=== PATIENT | male | born 1940 | race Caucasian/White ===

== ENCOUNTER → 2016-12-31 | Outpatient (CLI) | payer MEDICARE, BC ==
--- NOTE | 2016-12-31 11:27 | KCIC ---
MRI of the lumbar spine without contrast 12/31/2016 CLINICAL HISTORY: Recent L3 compression fracture. Low back pain. TECHNIQUE: Unenhanced T1-weighted, T2-weighted and inversion recovery sagittal and T1 and T2 weighted axial images of the lumbar spine were obtained. FINDINGS: Comparison is made to a CT scan of the abdomen and pelvis performed at [facility] dated 11/24/2016. Mild S-shaped curvature of the thoracolumbar spine is seen. Very mild anterolisthesis of L4 in relation to L5 is noted. Degenerative signal changes are seen involving all of the disks of the lumbar spine. Degenerative signal changes are seen within the marrow surrounding these discs. A relatively acute compression fracture is again seen involving the L3 vertebral body. This vertebral body has lost approximately 30 percent of its normal height, centrally. No retropulsion of bone fragments into the central spinal canal is seen. No additional compression fracture of the lumbar vertebrae is seen. The conus medullaris is normal in position, morphology and signal characteristics. At the L1-2 disc space there is a mild generalized disc bulge. Degenerative changes are seen involving the facet joints bilaterally. These findings when combined do not result in significant central spinal canal or neural foraminal stenosis. At the L2-3 disc space there is a moderate generalized disc bulge. Superimposed on this disc bulge is a central/left paracentral focal disc protrusion. This measures 3 mm in AP diameter. Degenerative changes are seen involving the facet joints bilaterally. There is moderate ligamentum flavum hypertrophy bilaterally. There is prominence of the posterior epidural fat. These findings when combined result in moderate to severe left greater than right central spinal canal stenosis. Mild left greater than right neural foraminal stenosis is seen. At the L3-4 disc space there is a mild to moderate generalized disc bulge. Degenerative changes are seen involving the facet joints bilaterally. There is mild ligamentum flavum hypertrophy bilaterally. These findings when combined result in mild to moderate central spinal canal stenosis. No neural foraminal stenosis is seen. At the L4-5 disc space there is a moderate generalized disc bulge. Superimposed on this disc bulge is a focal central/left paracentral disc protrusion. This measures 3 mm in AP diameter. Degenerative changes are seen involving the facet joints bilaterally. There is moderate ligamentum flavum hypertrophy bilaterally. These findings when combine result in severe right greater than left central spinal canal stenosis. Mild right neural foraminal stenosis is seen. The left neural foramen is patent. At the L5-S1 disc space there is a mild to moderate generalized disc bulge. Degenerative changes are seen involving the facet joints bilaterally. There is mild ligamentum flavum hypertrophy bilaterally. These findings do not result in significant central spinal canal or neural foraminal stenosis. IMPRESSION: 1. Relatively acute compression fracture is seen involving the L3 vertebral body. No retropulsion of bone fragments into the central spinal canal is seen. No additional compression fracture of the lumbar vertebrae seen. 2. The changes of degenerative disc disease are seen throughout the lumbar spine. These findings result in mild to moderate central spinal canal stenosis at L3-4, moderate to severe left greater than right central spinal canal stenosis at L2-3 and severe right greater than left central spinal canal stenosis at L4-5. Mild left greater than right neural foraminal stenosis is seen at L2-3. Mild right neural foraminal stenosis is seen at L4-5. Electronically signed by: Yazan Sheikh MD (12/31/2016 11:24 AM) [id number]
== END | disposition home or self-care (01) ==
LOC: KCIC MRI 10:05
PROVIDERS: ATTEND Nurse Practitioner Family
DX: M48.56XA Collapsed vertebra, not elsewhere classified, lumbar region, initial encounter for fracture (principal); M51.36 Other intervertebral disc degeneration, lumbar region; M48.061 Spinal stenosis, lumbar region without neurogenic claudication
CPT/HCPCS: 72148

== ENCOUNTER → 2018-04-26 | Outpatient (CLI) | payer MEDICARE, BC ==
[~2018-04-26] MED LIST: CARV6.25 PO; CLOP75TA PO; LIPITOR80 MG PO; PANT20TA2 PO; TAMS0.4C2 PO; VIT1CAPS12 PO
--- NOTE | 2018-04-26 16:07 | PAIN ---
DATE OF SERVICE: 04/26/2018 INITIAL CONSULTATION FOR PAIN CLINIC CHIEF COMPLAINT: Low back pain and bilateral lower extremity pain. HISTORY OF PRESENT ILLNESS: The patient is a 77-year-old male who presents with history of pain in the low back, bilateral extremities and hips, mostly posteriorly and anteriorly in the thighs, across low back, mid back and into the upper back as well. The patient has had physical therapy. He has done Physical Medicine and Rehabilitation with only minor decrease in pain. The patient reports pain is still significant. It helped a little bit while he was doing it, but has not helped the long-term. The patient is taking hydrocodone, which does help by about 50%, but takes it about 2-3 times a day on average without side effects. The patient reports no loss of motor function, but significant pain in the low back and in the lower extremities as described, intermittent in intensity, constant, sharp, aching pain across the low back, mid back, upper back, burning and radiating with cramping pain as well as sharp and stabbing, sometimes throbbing in between the shoulder blades. The patient rates his disability from 0-10, 10 being the worst, is a 5 with family and home responsibilities, social activity and self-care, 9 with recreation and sexual behavior, 10 with occupation and 0 with life support activities. The patient did have MRI scan of the lumbar spine, which was dated 12/31/2016 showing some moderate generalized disk bulge at L2-L3 with central left paracentral focal disk protrusion, L3-L4 with moderate generalized disk bulge as well, L4-L5 with moderate generalized disk bulge with focal central left paracentral disk protrusion also. The patient reports no loss of motor function, but significant fatigability of both lower extremities where he feels weak, but is not actually fallen or loss of motor function, but does feel significantly fatigued with both lower extremities, right essentially equal to left. PAST MEDICAL HISTORY: Significant for hypertension, cigarette smoking 1 pack a day for the last ____ years, continues to smoke. PREVIOUS SURGERY: Include an inguinal hernia repair. CURRENT MEDICATIONS: Include vitamins, Protonix, tamsulosin, carvedilol, clopidogrel, and Lipitor. ALLERGIES: The patient has no known drug allergies. FAMILY HISTORY: Significant for cancer in the patient's mother. SOCIAL HISTORY: The patient does not drink alcohol, does smoke about a pack of cigarettes a day for the past ____ years; does not using illegal, illicit or recreational drugs or other substances. He has been . 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 REVIEW OF SYSTEMS: The patient's review of systems is positive for those items mentioned in history of present illness. All systems reviewed and otherwise negative. It is complete, full and well documented on the patient's chart. PHYSICAL EXAMINATION: VITAL SIGNS: The patient's blood pressure is 124/75, pulse 80, respirations 16, temperature 97.9 degrees Fahrenheit, height 5 feet 6 inches, weight is 131 pounds. GENERAL: The patient is awake, alert, oriented, appropriate, very pleasant demeanor. HEENT: Head shows normocephalic, atraumatic. Extraocular movements are intact and symmetrical. Oral cavity: Mucous membranes moist and pink. Dentition is intact. NECK: Shows anterior throat supple without palpable lymphadenopathy noted. Swallow reflex is symmetrical. CHEST: Shows normal on inspection. Breath sounds clear to auscultation bilaterally. HEART: Shows S1, S2 clear. No murmurs auscultated. ABDOMEN: Soft, nontender, nondistended. No palpable organomegaly is noted. No rebound or guarding demonstrated. BACK: Shows spine grossly in the midline. Normal appearing thoracic kyphosis and lumbar lordotic curvature. Lumbar paraspinous muscle shows symmetrical on inspection, on palpation shows some moderate tenderness, but only diffusely without significant radiation or asymmetry, no atrophy or hypertrophy. No tenderness over the sacrum or sacroiliac regions over the spinous processes. The patient has good rotational motion of lumbar spine, both laterally as well as extension and flexion without significant difficulty. EXTREMITIES: Lower extremities show deep tendon reflexes at 1+ in the patellar and tendo calcaneus tendons are equal. Motor exam is strong with approximately 4 on a scale 5, but equal and symmetrical dorsiflexion, extension, quadriceps and hamstring flexion. Peripheral pulses are 1+ posterior tibial. No peripheral edema is noted bilaterally. The patient's lower extremities show equal in color and appearance. Warm and dry. Straight leg raise noted to be negative bilaterally for reproduction of radicular symptoms. Gaenslen's and Armando's maneuvers are negative bilaterally as well. The patient skin shows warm and dry, good turgor. No edema. No sores, rashes or bruising. The patient is able to stand, when stand on his toes, he loses balance fairly easily. He is using no assistive devices to ambulate and ambulates with a slight shuffling gait, does not appear to favor his right or left lower extremity significantly over the other. IMPRESSION: A 77-year-old male with, 1. A long history approximately 22 years with some back pain into the lower extremities in a radicular pattern intermittently, but across the low back and into the mid upper back as well with some myofascial component also. 2. MRI scan of lumbar spine as noted. 3. Hypertension. 4. Cigarette smoking. 5. Anticoagulation use. PLAN: Options were discussed with the patient including conservative medical management, continued physical therapy, interventional techniques. He would like to pursue interventional techniques. We discussed a lumbar epidural steroid injection using description as well as anatomical models to describe the procedure. We will check with the patient's prescribing physician regarding his Plavix, see if it is safe and deemed appropriate to hold for 7 days prior to potential injection. The patient will continue to take this for now. We will wait to hear on the clearance to hold the Plavix, if so we have him hold this for 7 days and then have him return for lumbar epidural steroid injection at that time. DENNIS ARGUELLO MD DR: MARCO ANTONIO/evon JOB#: [id number] / [id number] MAURY Nicholson DO
== END | disposition home or self-care (01) ==
LOC: PNCL 09:18
PROVIDERS: ATTEND Anesthesiology
DX: M54.5 Low back pain (principal); M79.604 Pain in right leg; M79.605 Pain in left leg; I10 Essential (primary) hypertension; F17.210 Nicotine dependence, cigarettes, uncomplicated; Z79.01 Long term (current) use of anticoagulants
CPT/HCPCS: G0463

== ENCOUNTER → 2018-05-17 | Outpatient (CLI) | payer MEDICARE, BC ==
[~2018-05-17] MED LIST changes: +BRIM5DRO2 OP; +BRIN10DR EACHEYE; +CYAN10005 PO; +LATA2.5D3 EACHEYE; +MAGN400C PO; +SINCALIDE 1.2 MCG in IV NORMAL SALINE 50ML 30 ML IV ONE
--- NOTE | 2018-05-17 07:48 | RAD ---
CLINICAL HISTORY: EPIGASTRIC PAIN, NUC MED TO FOLLOW COMPARISON: None available. TECHNIQUE: Limited ultrasound examination of the right upper quadrant of the abdomen was performed FINDINGS: Liver: The liver measures 13.3 cm in length in the right mid clavicular line. Hepatic echogenicity is normal and the margin is smooth. There is no focal abnormality of the liver. Portal and hepatic venous flow is confirmed with normal waveforms. Gallbladder/Biliary: The gallbladder is normal in appearance without evidence for cholelithiasis. There is no wall thickening or pericholecystic fluid. There is no pain with direct transducer pressure over the gallbladder.The common bile duct measures 0.7 cm. The right kidney measures 10 cm in bipolar length. No focal renal lesion or hydronephrosis. Borderline increased echogenicity of the right kidney Pancreas is obscured by overlying bowel gas. There is no free fluid in the subhepatic space. IMPRESSION: Borderline increased echogenicity of the right kidney may be seen with medical renal disease. Gallbladder is normal. No intra or extrahepatic biliary ductal dilatation is identified. No cholelithiasis. Electronically signed by: Hermilo Emerson MD (05/17/2018 7:45 AM) [facility]
--- NOTE | 2018-05-17 10:12 | RAD ---
Examination: NM HEPATOBILIARY SCAN W PHARM History: Intermittent abd pain x 2 weeks 5.5mci 99mTc Choletec - 1.2mCg Kinevac for EF Comparison/Correlation: 05/17/2018 Limited abdominal ultrasound exam Findings: 5.5 mCi technetium 99m Choletec was intravenously administered for purposes of hepatobiliary scintigraphy. Uptake of radiotracer by liver is normal. Gallbladder is visualized at 15 minutes. Radiotracer within small bowel at 10 minutes. Following 60 minutes, 1.2 mcg Kinevac was administered intravenously. Gallbladder ejection fraction by 30 minutes is identified to be 92%. No biliary dilatation. Impression: Normal hepatobiliary scintigraphy. Normal gallbladder ejection fraction. Electronically signed by: Davi Reynaga MD (05/17/2018 10:09 AM) [id number]
== END | disposition home or self-care (01) ==
LOC: US 06:33
PROVIDERS: ATTEND Internal Medicine Gastroenterology
DX: R10.13 Epigastric pain (principal); I10 Essential (primary) hypertension; Z79.01 Long term (current) use of anticoagulants; Z87.891 Personal history of nicotine dependence; Z86.69 Personal history of other diseases of the nervous system and sense organs
CPT/HCPCS: 76705; 78227; A9537; J2805

== ENCOUNTER → 2018-06-06 | Outpatient (CLI) | payer MEDICARE, BC ==
[~2018-06-06] MED LIST changes: -SINCALIDE 1.2 MCG in IV NORMAL SALINE 50ML 30 ML IV ONE
--- NOTE | 2018-06-06 14:24 | RAD ---
EXAM: Nuclear gastric emptying scan. HISTORY: Pain. COMPARISON: None. TECHNIQUE: Serial static images were obtained over the stomach following oral administration of 2 mCi of 99m-Tc sulfur colloid in an egg based meal. FINDINGS: The stomach empties into the small bowel without evidence of reflux in the area of the esophagus. The estimated time for half emptying of gastric contents, i.e. 'gastric emptying time' is 92 minutes (normal is 66 +/- 22 minutes). There is 65% retained tracer activity within the stomach at one hour, 44% retained tracer activity within the stomach at 2 hours, 23% retained tracer activity within the stomach at 3 hours, and 13% retained tracer activity within the stomach at 4 hours. IMPRESSION: Delayed gastric emptying with an estimated half-time of 92 minutes. Electronically signed by: Tram Tate MD (06/06/2018 2:21 PM) [id number]
== END | disposition home or self-care (01) ==
LOC: NM 09:40
PROVIDERS: ATTEND Internal Medicine Gastroenterology
DX: K30 Functional dyspepsia (principal)
CPT/HCPCS: 78264; A9541

== ENCOUNTER 2018-07-25 13:11 | Inpatient (IN) | payer MEDICARE, BC ==
[~2018-07-25] VITALS: Ht 167.6 cm; Wt 53.6 kg
[~2018-07-25 13:11] MED LIST changes: -BRIM5DRO2 OP; -BRIN10DR EACHEYE; -CYAN10005 PO; -LATA2.5D3 EACHEYE; -MAGN400C PO
[2018-07-25 13:53] LABS: BASO % 0 % (0-3); EOS % 0 % (0-3); HEMATOCRIT 38.8 % (39.0-53.0); LYMPH # 2.1 x10^3/uL (1.0-4.8); LYMPH % 21 % (24-48); MEAN CORPUSCULAR HEMOGLOBIN 33 pg (25-35); MEAN CORPUSCULAR HGB CONC 33 g/dL (31-37); MEAN CORPUSCULAR VOLUME 97 fL (79-100); MONO # 0.9 x10^3/uL (0.0-1.1); MONO % 9 % (0-9); NEUT # 6.8 x10^3uL (1.8-7.7); NEUT % 70 % (31-73); PLATELET COUNT 386 x10^3/uL (140-400); RED BLOOD COUNT 3.98 x10^6/uL (4.30-5.70); RED CELL DISTRIBUTION WIDTH 17.8 % (11.5-14.5); WHITE BLOOD COUNT 9.8 x10^3/uL (4.0-11.0)
--- NOTE | 2018-07-25 13:55 | PHYS DOC ---
Past Medical History Past Medical History: Anxiety, Glaucoma, High Cholesterol, Hypertension, SC, Other Additional Past Medical Histor: stents in heart, sepsis, pneumonia, ex alcoholic, alcohol related seizure Smoking: Cigarettes, 1 Pack Per Day Adult General Chief Complaint Chief Complaint: ALTERED MENTAL STATUS HPI HPI Patient is a 77 year old male who presents to the ER after being found unresponsive by his on the couch. Patient has repetitive questioning during exam and some confusion. Patient states that he got out of bed around 7 or 8:00 this morning and felt different. The probing showed that he felt weak on his left side. Patient states that his knee gave out and that he doesn't really remember much after that point. Had a seizure 20 years ago also had a history of a TIA. Review of Systems Review of Systems Constitutional: Denies fever or chills [] Eyes: Denies change in visual acuity, redness, or eye pain [] HENT: Denies nasal congestion or sore throat [] Respiratory: Denies cough or shortness of breath [] Cardiovascular: No additional information not addressed in HPI [] GI: Denies abdominal pain, nausea, vomiting, bloody stools or diarrhea [] : Denies dysuria or hematuria [] Musculoskeletal: Denies back pain or joint pain but reports weakness. Integument: Denies rash or skin lesions [] Neurologic: Denies headache, but reports focal weakness and sensory changes [] Endocrine: Denies polyuria or polydipsia [] Complete systems were reviewed and found to be within normal limits, except as documented in this note. Current Medications Current Medications Current Medications Medications (Trade) Dose Ordered Sig/Chidi Start Time Stop Time Status Last Admin Dose Admin Info (CONTRAST GIVEN -- Rx MONITORING) 1 each PRN DAILY PRN 07/25/18 14:15 07/27/18 14:14 Iohexol (Omnipaque 300 Mg/ml) 60 ml 1X ONCE 07/25/18 14:15 07/25/18 14:16 DC 07/25/18 14:30 60 ML Morphine Sulfate (Morphine Sulfate) 2 mg PRN Q2HR PRN 07/25/18 15:45 07/26/18 15:44 Ondansetron HCl (Zofran) 4 mg PRN Q8HRS PRN 07/25/18 15:45 07/26/18 15:44 Sodium Chloride 500 ml @ 500 mls/hr 1X ONCE 07/25/18 14:30 07/25/18 15:29 DC 07/25/18 15:05 500 MLS/HR Allergies Allergies Allergies Coded Allergies Type Severity Reaction Last Updated Verified prednisone Allergy Intermediate 04/26/18 Yes Physical Exam Physical Exam Constitutional: Well developed, well nourished, no acute distress, non-toxic appearance. [] HENT: Normocephalic, atraumatic, bilateral external ears normal, oropharynx moist, no oral exudates, nose normal. [] Eyes: PERRLA, EOMI, conjunctiva normal, no discharge. [] Neck: Normal range of motion, no tenderness, supple, no stridor. [] Cardiovascular:Heart rate regular rhythm, no murmur [] Lungs & Thorax: Bilateral breath sounds clear to auscultation [] Abdomen: Bowel sounds normal, soft, no tenderness, no masses, no pulsatile masses. [] Skin: Warm, dry, no erythema, no rash. [] Back: No tenderness, no CVA tenderness. [] Extremities: No tenderness, no cyanosis, no clubbing, ROM intact, no edema. [] Neurologic: Alert and oriented X 2, GCS is 14, states that the year is 1999. He has normal motor function, normal sensory function with the exception of Left arm has less sensory perception than the right arm. Psychologic: Affect flat, judgement reduced, repetitive questioning, mood normal. [] NIHSS scale is a 5 on physical exam. Administer stroke scale items in the order listed. Record performance in each category after each subscale exam. Do not go back and change scores. Follow directions provided for each exam technique. Scores should reflect what the patient does, not what the clinician thinks the patient can do. The clinician should record answers while administering the exam and work quickly. Except where indicated, the patient should not be coached (i.e., repeated requests to patient to make a special effort). 1a. Level of Consciousness: The certified vehicle fire investigator must choose a response if a full evaluation is prevented by such obstacles as an endotracheal tube, language barrier, orotracheal trauma/bandages. A 3 is scored only if the patient makes no movement (other than reflexive posturing) in response to noxious stimulation. 0 = Alert; keenly responsive. 1 = Not alert; but arousable by minor stimulation to obey, answer, or respond. 2 = Not alert; requires repeated stimulation to attend, or is obtunded and requires strong or painful stimulation to make movements (not stereotyped). 3 = Responds only with reflex motor or autonomic effects or totally unresponsive, flaccid, and areflexic. 1b. LOC Questions: The patient is asked the month and his/her age. The answer must be correct - there is no partial credit for being close. Aphasic and stuporous patients who do not comprehend the questions will score 2. Patients unable to speak because of endotracheal intubation, orotracheal trauma, severe dysarthria from any cause, language barrier, or any other problem not secondary to aphasia are given a 1. It is important that only the initial answer be graded and that the examiner not "help" the patient with verbal or non-verbal cues. 0 = Answers both questions correctly. 1 = Answers one question correctly. 2 = Answers neither question correctly. 1c. LOC Commands: The patient is asked to open and close the eyes and then to traffic routing engineer and release the non-paretic hand. Substitute another one step command if the hands cannot be used. Credit is given if an unequivocal attempt is made but not completed due to weakness. If the patient does not respond to command, the task should be demonstrated to him or her (pantomime), and the result scored (i.e., follows none, one or two commands). Patients with trauma, amputation, or other physical impediments should be given suitable one-step commands. Only the first attempt is scored. 0 = Performs both tasks correctly. 1 = Performs one task correctly. 2 = Performs neither task correctly. 2. Best Gaze: Only horizontal eye movements will be tested. Voluntary or reflexive (oculocephalic) eye movements will be scored, but caloric testing is not done. If the patient has a conjugate deviation of the eyes that can be overcome by voluntary or reflexive activity, the score will be 1. If a patient has an isolated peripheral nerve paresis (CN III, IV or ), score a 1. Gaze is testable in all aphasic patients. Patients with ocular trauma, ban dages, pre-existing blindness, or other disorder of visual acuity or costa should be tested with reflexive movements, and a choice made by the certified vehicle fire investigator. Establishing eye contact and then moving about the patient from side to side will occasionally clarify the presence of a partial gaze palsy. 0 = Normal. 1 = Partial gaze palsy; gaze is abnormal in one or both eyes, but forced dev iation or total gaze paresis is not present. 2 = Forced deviation, or total gaze paresis not overcome by the oculocephalic maneuver. Interval: [ ] Baseline [ ] 2 hours post treatment [ ] 24 hours post onset of symptoms 20 minutes [ ] 7-10 days [ ] 3 months [ ] Other ( ) 3. Visual: Visual costa (upper and lower quadrants) are tested by confrontation, using finger counting or visual threat, as appropriate. Patients may be encouraged, but if they look at the side of the moving fingers appropriately, this can be scored as normal. If there is unilateral blindness or enucleation, visual costa in the remaining eye are scored. Score 1 only if a clear-cut asymmetry, including quadrantanopia, is found. If patient is blind from any cause, score 3. Double simultaneous stimulation is performed at this point. If there is extinction, patient receives a 1, and the results are used to respond to item 11. 0 = No visual loss. 1 = Partial hemianopia. 2 = Complete hemianopia. 3 = Bilateral hemianopia (blind including cortical blindness). 4. Facial Palsy: Ask - or use pantomime to encourage - the patient to show teeth or raise eyebrows and close eyes. Score symmetry of grimace in response to noxious stimuli in the poorly responsive or non-comprehending patient. If facial trauma/bandages, orotracheal tube, tape or other physical barriers obscure the face, these should be removed to the extent possible. 0 = Normal symmetrical movements. 1 = Minor paralysis (flattened nasolabial fold, asymmetry on smiling). 2 = Partial paralysis (total or near-total paralysis of lower face). 3 = Complete paralysis of one or both sides (absence of facial movement in the upper and lower face). 5. Motor Arm: The limb is placed in the appropriate position: extend the arms (palms down) 90 degrees (if sitting) or 45 degrees (if supine). Drift is scored if the arm falls before 10 seconds. The aphasic patient is encouraged using urgency in the voice and pantomime, but not noxious stimulation. Each limb is tested in turn, beginning with the non-paretic arm. Only in the case of amputation or joint fusion at the shoulder, the examiner should record the score as untestable (UN), and clearly write the explanation for this choice. 0 = No drift; limb holds 90 (or 45) degrees for full 10 seconds. 1 = Drift; limb holds 90 (or 45) degrees, but drifts down before full 10 seconds; does not hit bed or other support. 2 = Some effort against gravity; limb cannot get to or maintain (if cued) 90 (or 45) degrees, drifts down to bed, but has some effort against gravity. 3 = No effort against gravity; limb falls. 4 = No movement. UN = Amputation or joint fusion, explain: 5a. Left Arm 5b. Right Arm 6. Motor Leg: The limb is placed in the appropriate position: hold the leg at 30 degrees (always tested supine). Drift is scored if the leg falls before 5 seconds. The aphasic patient is encouraged using urgency in the voice and pantomime, but not noxious stimulation. Each limb is tested in turn, beginning with the non-paretic leg. Only in the case of amputation or joint fusion at the hip, the examiner should record the score as untestable (UN), and clearly write the explanation for this choice. 0 = No drift; leg holds 30-degree position for full 5 seconds. 1 = Drift; leg falls by the end of the 5-second period but does not hit bed. 2 = Some effort against gravity; leg falls to bed by 5 seconds, but has some effort against gravity. 3 = No effort against gravity; leg falls to bed immediately. 4 = No movement. UN = Amputation or joint fusion, explain: 6a. Left Leg 6b. Right Leg Interval: [ ] Baseline [ ] 2 hours post treatment [ ] 24 hours post onset of symptoms 20 minutes [ ] 7-10 days [ ] 3 months [ ] Other ( ) 7. Limb Ataxia: This item is aimed at finding evidence of a unilateral cerebellar lesion. Test with eyes open. In case of visual defect, ensure testing is done in intact visual field. The hztarw-cgfq-qnavng and heel-bustamante tests are performed on both sides, and ataxia is scored only if present out of proportion to weakness. Ataxia is absent in the patient who cannot understand or is paralyzed. Only in the case of amputation or joint fusion, the examiner should record the score as untestable (UN), and clearly write the explanation for this choice. In case of blindness, test by having the patient touch nose from extended arm position. 0 = Absent. 1 = Present in one limb. 2 = Present in two limbs. UN = Amputation or joint fusion, explain: 8. Sensory: Sensation or grimace to pinprick when tested, or withdrawal from noxious stimulus in the obtunded or aphasic patient. Only sensory loss attributed to stroke is scored as abnormal and the examiner should test as many body areas (arms [not hands], legs, trunk, face) as needed to accurately check for hemisensory loss. A score of 2, "severe or total sensory loss," should only be given when a severe or total loss of sensation can be clearly demonstrated. Stuporous and aphasic patients will, therefore, probably score 1 or 0. The patient with brainstem stroke who has bilateral loss of sensation is scored 2. If the patient does not respond and is quadriplegic, score 2. Patients in a coma (item 1a=3) are automatically given a 2 on this item. 0 = Normal; no sensory loss. 1 = Eynh-qp-uwyuklgg sensory loss; patient feels pinprick is less sharp or is dull on the affected side; or there is a loss of superficial pain with pinprick, but patient is aware of being touched. 2 = Severe to total sensory loss; patient is not aware of being touched in the face, arm, and leg. 9. Best Language: A great deal of information about comprehension will be obtained during the preceding sections of the examination. For this scale item, the patient is asked to describe what is happening in the attached picture, to name the items on the attached naming sheet and to read from the attached list of sentences. Comprehension is judged from responses here, as well as to all of the commands in the preceding general neurological exam. If visual loss interferes with the tests, ask the patient to identify objects placed in the hand, repeat, and produce speech. The intubated patient should be asked to write. The patient in a coma (item 1a=3) will automatically score 3 on this item. The examiner must choose a score for the patient with stupor or limited cooperation, but a score of 3 should be used only if the patient is mute and follows no one-step commands. 0 = No aphasia; normal. 1 = Saiz-jo-nthuoyfk aphasia; some obvious loss of fluency or facility of comprehension, without significant limitation on ideas expressed or form of expression. Reduction of speech and/or comprehension, however, makes conversation about provided materials difficult or impossible. For example, in conversation about provided materials, examiner can identify picture or naming card content from patient's response. 2 = Severe aphasia; all communication is through fragmentary expression; great need for inference, questioning, and guessing by the listener. Range of information that can be exchanged is limited; listener carries burden of communication. Examiner cannot identify materials provided from patient response. 3 = Mute, global aphasia; no usable speech or auditory comprehension. 10. Dysarthria: If patient is thought to be normal, an adequate sample of speech must be obtained by asking patient to read or repeat words from the attached list. If the patient has severe aphasia, the clarity of articu lation of spontaneous speech can be rated. Only if the patient is intubated or has other physical barriers to producing speech, the examiner should record the score as untestable (UN), and clearly write an explanation for this choice. Do not tell the patient why he or she is being tested. 0 = Normal. 1 = Sroy-hx-kxnxemrh dysarthria; patient slurs at least some words and, at worst, can be understood with some difficulty. 2 = Severe dysarthria; patient's speech is so slurred as to be unintelligible in the absence of or out of proportion to any dysphasia, or is m [place]/anarthric. UN = Intubated or other physical barrier, explain: Interval: [ ] Baseline [ ] 2 hours post treatment [ ] 24 hours post onset of symptoms 20 minutes [ ] 7-10 days [ ] 3 months [ ] Other ( ) 11. Extinction and Inattention (formerly Neglect): Sufficient information to identify neglect may be obtained during the prior testing. If the patient has a severe visual loss preventing visual double simultaneous stimulation, and the cutaneous stimuli are normal, the score is normal. If the patient has aphasia but does appear to attend to both sides, the score is normal. The presence of visual spatial neglect or anosagnosia may also be taken as evidence of abnormality. Since the abnormality is scored only if present, the item is never untestable. 0 = No abnormality. 1 = Visual, tactile, auditory, spatial, or personal inattention or extinction to bilateral simultaneous stimulation in one of the sensory modalities. 2 = Profound brian-inattention or extinction to more than one modality; does not recognize own hand or orients to only one side of space. Current Patient Data Vital Signs Vital Signs Date Time Temp Pulse Resp B/P (MAP) Pulse Ox O2 Delivery O2 Flow Rate FiO2 07/25/18 14:00 86 20 99 07/25/18 13:13 97.7 146/78 (100) Room Air 97.7 Lab Values Laboratory Tests Test 07/25/18 13:20 White Blood Count 9.8 x10^3/uL (4.0-11.0) Red Blood Count 3.98 x10^6/uL (4.30-5.70) L Hemoglobin 13.0 g/dL (13.0-17.5) Hematocrit 38.8 % (39.0-53.0) L Mean Corpuscular Volume 97 fL (79-100) Mean Corpuscular Hemoglobin 33 pg (25-35) Mean Corpuscular Hemoglobin Concent 33 g/dL (31-37) Red Cell Distribution Width 17.8 % (11.5-14.5) H Platelet Count 386 x10^3/uL (140-400) Neutrophils (%) (Auto) 70 % (31-73) Lymphocytes (%) (Auto) 21 % (24-48) L Monocytes (%) (Auto) 9 % (0-9) Eosinophils (%) (Auto) 0 % (0-3) Basophils (%) (Auto) 0 % (0-3) Neutrophils # (Auto) 6.8 x10^3uL (1.8-7.7) Lymphocytes # (Auto) 2.1 x10^3/uL (1.0-4.8) Monocytes # (Auto) 0.9 x10^3/uL (0.0-1.1) Eosinophils # (Auto) 0.0 x10^3/uL (0.0-0.7) Basophils # (Auto) 0.0 x10^3/uL (0.0-0.2) Prothrombin Time 12.3 SEC (11.7-14.0) Prothrombin Time INR 0.9 (0.8-1.1) PTT 27 SEC (24-38) Sodium Level 136 mmol/L (136-145) Potassium Level 3.7 mmol/L (3.5-5.1) Chloride Level 100 mmol/L (98-107) Carbon Dioxide Level 23 mmol/L (21-32) Anion Gap 13 (6-14) Blood Urea Nitrogen 18 mg/dL (8-26) Creatinine 1.2 mg/dL (0.7-1.3) Estimated GFR (Cockcroft-Gault) 58.7 BUN/Creatinine Ratio 15 (6-20) Glucose Level 144 mg/dL (70-99) H Calcium Level 8.7 mg/dL (8.5-10.1) Total Bilirubin 0.5 mg/dL (0.2-1.0) Aspartate Amino Transferase (AST) 17 U/L (15-37) Alanine Aminotransferase (ALT) 20 U/L (16-63) Alkaline Phosphatase 96 U/L (46-116) Troponin I Quantitative < 0.017 ng/mL (0.000-0.055) Total Protein 6.8 g/dL (6.4-8.2) Albumin 3.3 g/dL (3.4-5.0) L Albumin/Globulin Ratio 0.9 (1.0-1.7) L Ethyl Alcohol Level < 3 mg/dL (0-10) Laboratory Tests 07/25/18 13:20 Laboratory Tests 07/25/18 13:20 EKG EKG Interpreted by Dr. Garcia, No STEMI, Sinus Rhythm with rate of 93.[] Radiology/Procedures Radiology/Procedures []PATIENT: HAYES JIMENEZ JR RACCOUNT: [id number]#: [id number] : 1940 LOCATION: ER AGE: 77 SEX: M EXAM STATUS: PRE ER ORD. PHYSICIAN: HERMAN MARTIN APRN REASON: ALTERED MENTAL STATUS PROCEDURE: PORTABLE CHEST 1V EXAM: CHEST 1 VIEW History: Altered mental status COMPARISON: 07/25/2012 TECHNIQUE: Single portable radiograph of the chest FINDINGS: The cardiac silhouette is unremarkable. The lungs are clear bilaterally. The costophrenic sulci are clear and well demarcated. Calcified density identified in the left lung base is similar to prior exam. Minimal bibasilar lung atelectasis. IMPRESSION: Minimal bibasilar lung atelectasis. PATIENT: HAYES JIMENEZ JR R ACCOUNT: [id number] : 1940 LOCATION: ER AGE: 77 SEX: M EXAM STATUS: PRE ER ORD. PHYSICIAN: HERMAN MARTIN APRN REASON: Acute AMS, L sided weakness and sensory changes PROCEDURE: CT ANGIOGRAPHY HEAD AND NECK CTA head and neck with contrast dated 07/25/2018. No comparison available. Clinical data indication: Left-sided weakness. Altered mental status. TECHNIQUE: Contiguous axial imaging the head and neck performed following the intravenous demonstration of 60 cc Omnipaque 300. Study was performed as dedicated CTA with thin cut coronal and sagittal MIPS reconstructions and 3-D rotational reconstructions. One or more of the following individualized dose reduction techniques were utilized for this examination: 1. Automated exposure control 2. Adjustment of the mA and/or kV according to patient size 3. Use of iterative reconstruction technique. Carotid Stenosis calculations for CT, MR, and conventional angiography are based upon measurements of the distal ICA diameter in accordance with the NASCET methodology. Stenosis calculations for carotid ultrasound studies are derived from validated velocity criteria which are known to correlate with the NASCET methodology. Findings: Contrast bolus is adequate. Aortic arch is normal in caliber. Arch anatomy is standard. Minimal scattered calcific plaque at the bilateral subclavian arteries, without significant stenosis. Calcific plaque at the origin of the right vertebral artery results in mild ostial narrowing. Bilateral vertebral arteries are otherwise patent to the skull base. No stenosis or intimal flap. There is scattered calcific plaque of the intradural left vertebral artery resulting in mild multifocal luminal narrowing. Basilar artery is well formed. There is origin of the right [employer] with near origin of the left [employer]. No [employer] stenosis or aneurysm. Bilateral common carotid artery origins are patent. There is extensive calcific plaque at the left carotid bifurcation and proximal left ICA, resulting in mild narrowing of the proximal left ICA, estimated at 30% stenosis. Left internal carotid artery is otherwise patent to the skull base. Mild to moderate calcific plaque at the right carotid bifurcation and proximal right ICA resulting in mild narrowing of the proximal left ICA, estimated at about 20% stenosis. The right ICA is otherwise patent to the skull base. The petrous and cavernous internal carotid arteries are patent. There is calcific plaquing of the bilateral cavernous and supraclinoid segments. Mild multifocal luminal narrowing. No high-grade stenosis. Bilateral JOSE GUADALUPE and MCA branches are patent. No stenosis or aneurysm. No apparent branch vessel occlusion. Imaged portions the brain parenchyma unremarkable. No abnormal enhancement or mass. The dural venous sinuses are grossly patent. Small mucous retention cyst of the right maxilla sinus. The visualized paranasal sinuses and mastoid air cells are otherwise clear. Visualized soft tissue structures unremarkable. There is mild emphysema at the lung apices. A small pulmonary nodule of the left upper lobe measures 4 mm in size (image [id number]). IMPRESSION: 1. No evidence of hemodynamically significant stenosis or aneurysm. There is mild narrowing of the proximal bilateral ICA due to calcific plaquing. There is also mild narrowing of the parasellar internal carotid arteries bilaterally. 2. Otherwise no significant abnormality. 3. Mild emphysema. 4. Small noncalcified pulmonary nodule in the left upper lobe, nonspecific. Electronically signed by: Herman Tian MD (07/25/2018 2:47 PM) [id number] Electronically signed by: Liam Bowers MD (07/25/2018 2:11 PM) [id number] PATIENT: HAYES JIMENEZ JR ACCOUNT: [id number] : 1940 LOCATION: ER AGE: 77 SEX: M EXAM STATUS: PRE ER ORD. PHYSICIAN: HERMAN MARTIN APRN REASON: Acute AMS, L sided weakness and sensory changes. PREVIOUS PROCEDURE: CT HEAD WO CONTRAST CT head without contrast dated 07/25/2018. No comparison available. Clinical data indication: Altered mental status. Left-sided weakness. TECHNIQUE: Contiguous axial imaging the head performed from skull base to vertex. No contrast administered. One or more of the following individualized dose reduction techniques were utilized for this examination: 1. Automated exposure control 2. Adjustment of the mA and/or kV according to patient size 3. Use of iterative reconstruction technique FINDINGS: Ventricles and sulci are mildly prominent for age. No midline shift or mass effect. Minimal patchy low density in the deep/subcortical periventricular white matter. No hemorrhage or extra-axial collection. Posterior fossa and brainstem unremarkable. Visualized paranasal sinuses and mastoid air cells are clear. No apparent calvarial abnormality. IMPRESSION: 1. No evidence of acute intracranial hemorrhage or mass. 2. Mild chronic small vessel ischemic changes and atrophy. Electronically signed by: Herman Tian MD (07/25/2018 2:29 PM) [id number] Course & Med Decision Making Course & Med Decision Making Pertinent Labs and Imaging studies reviewed. (See chart for details) Will order CT head/neck, will also order labs, chest xray. Will talk to further once she arrives. Patient is on Plavix and onset is last night as he woke up feeling different. He is out of the window for IR or TPA treatment. Talked to . States he was sitting next to her on the couch and started staring straight ahead. He was more confused than normal and he had left sided weakness. He also was jerking some. He would not answer her questions. Will page Dr. Head and discuss case with her. Discussed case with Dr. Head at 1435. She request MRI during admission. Imaging and labs are unremarkable. Will talk to hospitalist about admission. Talked to Dr. Real he will admit to hospital. Dragon Disclaimer Dragon Disclaimer This electronic medical record was generated, in whole or in part, using a voice recognition dictation system. Departure Departure Impression: Primary Impression: Transient ischemic attack (TIA) Disposition: ADMITTED INPATIENT Condition: STABLE HERMAN MARTIN APRN July 25, 2018 13:55
[2018-07-25 14:02] LABS: CALCIUM 8.7 mg/dL (8.5-10.1); CREATININE 1.2 mg/dL (0.7-1.3); GFR 58.7; POTASSIUM 3.7 mmol/L (3.5-5.1)
[2018-07-25 14:04] LABS: PROTHROMBIN TIME PATIENT 12.3 SEC (11.7-14.0)
[2018-07-25 14:08] LABS: ALBUMIN 3.3 g/dL (3.4-5.0); ALBUMIN/GLOBULIN RATIO 0.9 (1.0-1.7); TOTAL BILIRUBIN 0.5 mg/dL (0.2-1.0); TOTAL PROTEIN 6.8 g/dL (6.4-8.2)
--- NOTE | 2018-07-25 14:14 | RAD ---
EXAM: CHEST 1 VIEW History: Altered mental status COMPARISON: 07/25/2012 TECHNIQUE: Single portable radiograph of the chest FINDINGS: The cardiac silhouette is unremarkable. The lungs are clear bilaterally. The costophrenic sulci are clear and well demarcated. Calcified density identified in the left lung base is similar to prior exam. Minimal bibasilar lung atelectasis. IMPRESSION: Minimal bibasilar lung atelectasis. Electronically signed by: Liam Bowers MD (07/25/2018 2:11 PM) [place] [id number]
[2018-07-25] MEDS ORDERED: IOHEXOL 300 MG/ML 100ML VIAL. IV ONE (14:15)
[2018-07-25] MEDS ORDERED: CONTRAST GIVEN. MC PRN (14:15)
[2018-07-25] MEDS ORDERED: IV NORMAL SALINE 500ML BAG 500 ML IV ONE (14:30)
--- NOTE | 2018-07-25 14:32 | RAD ---
CT head without contrast dated 07/25/2018. No comparison available. Clinical data indication: Altered mental status. Left-sided weakness. TECHNIQUE: Contiguous axial imaging the head performed from skull base to vertex. No contrast administered. One or more of the following individualized dose reduction techniques were utilized for this examination: 1. Automated exposure control 2. Adjustment of the mA and/or kV according to patient size 3. Use of iterative reconstruction technique FINDINGS: Ventricles and sulci are mildly prominent for age. No midline shift or mass effect. Minimal patchy low density in the deep/subcortical periventricular white matter. No hemorrhage or extra-axial collection. Posterior fossa and brainstem unremarkable. Visualized paranasal sinuses and mastoid air cells are clear. No apparent calvarial abnormality. IMPRESSION: 1. No evidence of acute intracranial hemorrhage or mass. 2. Mild chronic small vessel ischemic changes and atrophy. Electronically signed by: Herman Tian MD (07/25/2018 2:29 PM) [id number]
--- NOTE | 2018-07-25 14:50 | RAD ---
CTA head and neck with contrast dated 07/25/2018. No comparison available. Clinical data indication: Left-sided weakness. Altered mental status. TECHNIQUE: Contiguous axial imaging the head and neck performed following the intravenous demonstration of 60 cc Omnipaque 300. Study was performed as dedicated CTA with thin cut coronal and sagittal MIPS reconstructions and 3-D rotational reconstructions. One or more of the following individualized dose reduction techniques were utilized for this examination: 1. Automated exposure control 2. Adjustment of the mA and/or kV according to patient size 3. Use of iterative reconstruction technique. Carotid Stenosis calculations for CT, MR, and conventional angiography are based upon measurements of the distal ICA diameter in accordance with the NASCET methodology. Stenosis calculations for carotid ultrasound studies are derived from validated velocity criteria which are known to correlate with the NASCET methodology. Findings: Contrast bolus is adequate. Aortic arch is normal in caliber. Arch anatomy is standard. Minimal scattered calcific plaque at the bilateral subclavian arteries, without significant stenosis. Calcific plaque at the origin of the right vertebral artery results in mild ostial narrowing. Bilateral vertebral arteries are otherwise patent to the skull base. No stenosis or intimal flap. There is scattered calcific plaque of the intradural left vertebral artery resulting in mild multifocal luminal narrowing. Basilar artery is well formed. There is origin of the right CARDIOLOGY ASSOCIATE with near origin of the left CARDIOLOGY ASSOCIATE. No CARDIOLOGY ASSOCIATE stenosis or aneurysm. Bilateral common carotid artery origins are patent. There is extensive calcific plaque at the left carotid bifurcation and proximal left ICA, resulting in mild narrowing of the proximal left ICA, estimated at 30% stenosis. Left internal carotid artery is otherwise patent to the skull base. Mild to moderate calcific plaque at the right carotid bifurcation and proximal right ICA resulting in mild narrowing of the proximal left ICA, estimated at about 20% stenosis. The right ICA is otherwise patent to the skull base. The petrous and cavernous internal carotid arteries are patent. There is calcific plaquing of the bilateral cavernous and supraclinoid segments. Mild multifocal luminal narrowing. No high-grade stenosis. Bilateral JOSE GUADALUPE and MCA branches are patent. No stenosis or aneurysm. No apparent branch vessel occlusion. Imaged portions the brain parenchyma unremarkable. No abnormal enhancement or mass. The dural venous sinuses are grossly patent. Small mucous retention cyst of the right maxilla sinus. The visualized paranasal sinuses and mastoid air cells are otherwise clear. Visualized soft tissue structures unremarkable. There is mild emphysema at the lung apices. A small pulmonary nodule of the left upper lobe measures 4 mm in size (image [id number]). IMPRESSION: 1. No evidence of hemodynamically significant stenosis or aneurysm. There is mild narrowing of the proximal bilateral ICA due to calcific plaquing. There is also mild narrowing of the parasellar internal carotid arteries bilaterally. 2. Otherwise no significant abnormality. 3. Mild emphysema. 4. Small noncalcified pulmonary nodule in the left upper lobe, nonspecific. Electronically signed by: Herman Tian MD (07/25/2018 2:47 PM) [id number]
--- NOTE | 2018-07-25 15:29 | EKG ---
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
[2018-07-25] MEDS ORDERED: ONDANSETRON PF 4 MG/2 ML VIAL. IV PRN (15:45)
[2018-07-25] MEDS ORDERED: MORPHINE SULFATE 2 MG/ML VIAL. IV PRN (15:45)
--- NOTE | 2018-07-25 15:50 | PDOC1 ---
History and Physical Date of Admission Date of Admission DATE: 07/25/18 TIME: 15:46 Identification/Chief Complaint Chief Complaint Confusion Source Source: Chart review, Patient History of Present Illness History of Present Illness Patient is a 77 year old male w/ PMHx Anxiety, Glaucoma, High Cholesterol, Hypertension, NV s/p NIGEL, smoker, ex alcoholic, alcohol related seizure who presents to the ER after being found unresponsive by his on the couch. Patient has repetitive questioning during exam and some confusion. Patient states that he got out of bed around 7 or 8:00 this morning and felt different. He felt weak on his left side, notes his left foot feels weak. Had a seizure 20 years ago related to ETOH withdrawal also had a history of a TIA. He notes to me on examination he is scared he had a stroke and notes he is a DNR. Past Medical History Cardiovascular: CAD, HTN Pulmonary: No pertinent hx GI: No pertinent hx Heme/Onc: No pertinent hx Hepatobiliary: No pertinent hx Psych: No pertinent hx Rheumatologic: No pertinent hx Infectious disease: No pertinent hx ENT: No pertinent hx Renal/: No pertinent hx Endocrine: No pertinent hx Dermatology: No pertinent hx Past Surgical History Past Surgical History: No pertinent history Family History Family History: Heart Disease, High Cholestrol Social History Smoke: 2 packs per day ALCOHOL: other (Ex-drinker) Drugs: None Current Problem List Problem List Problems Medical Problems: (1) Transient ischemic attack (TIA) Status: Acute Current Medications Current Medications Current Medications Iohexol (Omnipaque 300 Mg/ml) 60 ml 1X ONCE IV Last administered on 07/25/18at 14:30; Start 07/25/18 at 14:15; Stop 07/25/18 at 14:16; Status DC Info (CONTRAST GIVEN -- Rx MONITORING) 1 each PRN DAILY PRN MC SEE COMMENTS; Start 07/25/18 at 14:15; Stop 07/27/18 at 14:14 Sodium Chloride 500 ml @ 500 mls/hr 1X ONCE IV Last administered on 07/25/18at 15:05; Start 07/25/18 at 14:30; Stop 07/25/18 at 15:29; Status DC Active Scripts Active Reported Preservision Areds Softgel (Vit A/Vit C/Vit E/Zinc/Copper) 1 Each Capsule 1 Each PO BID Protonix (Pantoprazole Sodium) 20 Mg Tablet.dr 1 Tab PO DAILY Tamsulosin Hcl 0.4 Mg Cap.er.24h 1 Cap PO DAILY Clopidogrel (Clopidogrel Bisulfate) 75 Mg Tablet 1 Tab PO DAILY Coreg (Carvedilol) 6.25 Mg Tablet 6.25 Mg PO BIDWMEALS Lipitor (Atorvastatin Calcium) 80 Mg Tablet 1 Tab PO DAILY Allergies Allergies: Coded Allergies: prednisone (Verified Allergy, Intermediate, 04/26/18) ROS General: YES: Fatigue, Malaise; No: Chills, Night Sweats, Appetite, Other PSYCHOLOGICAL ROS: YES: Anxiety; No: Behavioral Disorder, Concentration difficultie, Decreased libido, Depression, Disorientation, Hallucinations, Hostility, Irritablity, Memory difficulties, Mood Swings, Obsessive thoughts, Physical abuse, Sexual abuse, Sleep disturbances, Suicidal ideation, Other Eyes: No Blurry vision, No Decreased vision, No Double vision, No Dry eyes, No Excessive tearing, No Eye Pain, No Itchy Eyes, No Loss of vision, No Photophobi a, No Scotomata, No Uses contacts, No Uses glasses, No Other HEENT: No: Heacaches, Visual Changes, Hearing change, Nasal congestion, Nasal discharge, Oral lesions, Sinus pain, Sore Throat, Epistaxis, Sneezing, Snoring, Tinnitus, Vertigo, Vocal changes, Other ALLERGY AND IMMUNOLOGY: No: Hives, Insect Bite Sensitivity, Itchy/Watery Eyes, Nasal Congestion, Post Nasal Drip, Seasonal Allergies, Other Hematological and Lymphatic: No: Bleeding Problems, Blood Clots, Blood Transfusions, Brusing, Night Sweats, Pallor, Swollen Lymph Nodes, Other ENDOCRINE: No: Breast Changes, Galactorrhea, Hair Pattern Changes, Hot Flashes, Malaise/lethargy, Mood Swings, Palpitations, Polydipsia/polyuria, Skin Changes, Temperature Intolerance, Unexpected Weight Changes, Other Breast: No New/Changing Breast Lumps, No Nipple changes, No Nipple discharge, No Other Respiratory: No: Cough, Hemoptysis, Orthopnea, Pleuritic Pain, Shortness of breath, SOB with excertion, Sputum Changes, Stridor, Tachypnea, Wheezing, Other Cardiovascular: No Chest Pain, No Palpitations, No Orthopnea, No Paroxysmal Noc. Dyspnea, No Edema, No Lt Headedness, No Other Gastrointestinal: No Nausea, No Vomiting, No Abdominal Pain, No Diarrhea, No Constipation, No Melena, No Hematochezia, No Other Genitourinary: No Dysuria, No Frequency, No Incontinence, No Hematuria, No Retention, No Discharge, No Urgency, No Pain, No Flank Pain, No Other, No , No , No , No , No , No , No Musculoskeletal: Yes Gait Disturbance, Yes Muscular Weakness; No Joint Pain, No Joint Stiffness, No Joint Swelling, No Muscle Pain, No Pain In:, No Swelling In:, No Other Neurological: Yes Confusion, Yes Gait Disturbance, Yes Numbness/Tingling; No Behavorial Changes, No Bowel/Bladder ControlChng, No Dizziness, No Headaches, No Impaired Coord/balance, No Memory Loss, No Seizures, No Speech Problems, No Tremors, No Visual Changes, No Weakness, No Other Skin: No Dry Skin, No Eczema, No Hair Changes, No Lumps, No Mole Changes, No Mottling, No Nail Changes, No Pruritus, No Rash, No Skin Lesion Changes, No Other, No Acne Physical Exam General: Alert, Cooperative, No acute distress HEENT: Atraumatic, PERRLA, EOMI, Mucous membr. moist/pink Lungs: Clear to auscultation, Normal air movement Heart: S1S2, RRR, no gallops, no murmurs Abdomen: Normal bowel sounds, Soft, No tenderness, No hepatosplenomegaly, No masses Rectal Exam: not examined Extremities: No clubbing, No cyanosis, No edema, Normal pulses, No tenderness/swelling Skin: No rashes, No breakdown, No significant lesion Neuro: Normal speech, Normal tone, Sensation intact, Cranial nerves 3-12 NL, Reflexes 2+ Psych/Mental Status: Mental status NL, Mood NL Vitals Vitals Vital Signs Date Time Temp Pulse Resp B/P (MAP) Pulse Ox O2 Delivery O2 Flow Rate FiO2 07/25/18 14:00 86 20 99 07/25/18 13:13 97.7 146/78 (100) Room Air 97.7 Labs Labs Laboratory Tests Test 07/25/18 13:20 White Blood Count 9.8 x10^3/uL (4.0-11.0) Red Blood Count 3.98 x10^6/uL (4.30-5.70) Hemoglobin 13.0 g/dL (13.0-17.5) Hematocrit 38.8 % (39.0-53.0) Mean Corpuscular Volume 97 fL (79-100) Mean Corpuscular Hemoglobin 33 pg (25-35) Mean Corpuscular Hemoglobin Concent 33 g/dL (31-37) Red Cell Distribution Width 17.8 % (11.5-14.5) Platelet Count 386 x10^3/uL (140-400) Neutrophils (%) (Auto) 70 % (31-73) Lymphocytes (%) (Auto) 21 % (24-48) Monocytes (%) (Auto) 9 % (0-9) Eosinophils (%) (Auto) 0 % (0-3) Basophils (%) (Auto) 0 % (0-3) Neutrophils # (Auto) 6.8 x10^3uL (1.8-7.7) Lymphocytes # (Auto) 2.1 x10^3/uL (1.0-4.8) Monocytes # (Auto) 0.9 x10^3/uL (0.0-1.1) Eosinophils # (Auto) 0.0 x10^3/uL (0.0-0.7) Basophils # (Auto) 0.0 x10^3/uL (0.0-0.2) Prothrombin Time 12.3 SEC (11.7-14.0) Prothromb Time International Ratio 0.9 (0.8-1.1) Activated Partial Thromboplast Time 27 SEC (24-38) Sodium Level 136 mmol/L (136-145) Potassium Level 3.7 mmol/L (3.5-5.1) Chloride Level 100 mmol/L (98-107) Carbon Dioxide Level 23 mmol/L (21-32) Anion Gap 13 (6-14) Blood Urea Nitrogen 18 mg/dL (8-26) Creatinine 1.2 mg/dL (0.7-1.3) Estimated GFR (Cockcroft-Gault) 58.7 BUN/Creatinine Ratio 15 (6-20) Glucose Level 144 mg/dL (70-99) Calcium Level 8.7 mg/dL (8.5-10.1) Total Bilirubin 0.5 mg/dL (0.2-1.0) Aspartate Amino Transf (AST/SGOT) 17 U/L (15-37) Alanine Aminotransferase (ALT/SGPT) 20 U/L (16-63) Alkaline Phosphatase 96 U/L (46-116) Troponin I Quantitative < 0.017 ng/mL (0.000-0.055) Total Protein 6.8 g/dL (6.4-8.2) Albumin 3.3 g/dL (3.4-5.0) Albumin/Globulin Ratio 0.9 (1.0-1.7) Ethyl Alcohol Level < 3 mg/dL (0-10) Laboratory Tests Test 07/25/18 13:20 White Blood Count 9.8 x10^3/uL (4.0-11.0) Red Blood Count 3.98 x10^6/uL (4.30-5.70) Hemoglobin 13.0 g/dL (13.0-17.5) Hematocrit 38.8 % (39.0-53.0) Mean Corpuscular Volume 97 fL (79-100) Mean Corpuscular Hemoglobin 33 pg (25-35) Mean Corpuscular Hemoglobin Concent 33 g/dL (31-37) Red Cell Distribution Width 17.8 % (11.5-14.5) Platelet Count 386 x10^3/uL (140-400) Neutrophils (%) (Auto) 70 % (31-73) Lymphocytes (%) (Auto) 21 % (24-48) Monocytes (%) (Auto) 9 % (0-9) Eosinophils (%) (Auto) 0 % (0-3) Basophils (%) (Auto) 0 % (0-3) Neutrophils # (Auto) 6.8 x10^3uL (1.8-7.7) Lymphocytes # (Auto) 2.1 x10^3/uL (1.0-4.8) Monocytes # (Auto) 0.9 x10^3/uL (0.0-1.1) Eosinophils # (Auto) 0.0 x10^3/uL (0.0-0.7) Basophils # (Auto) 0.0 x10^3/uL (0.0-0.2) Prothrombin Time 12.3 SEC (11.7-14.0) Prothromb Time International Ratio 0.9 (0.8-1.1) Activated Partial Thromboplast Time 27 SEC (24-38) Sodium Level 136 mmol/L (136-145) Potassium Level 3.7 mmol/L (3.5-5.1) Chloride Level 100 mmol/L (98-107) Carbon Dioxide Level 23 mmol/L (21-32) Anion Gap 13 (6-14) Blood Urea Nitrogen 18 mg/dL (8-26) Creatinine 1.2 mg/dL (0.7-1.3) Estimated GFR (Cockcroft-Gault) 58.7 BUN/Creatinine Ratio 15 (6-20) Glucose Level 144 mg/dL (70-99) Calcium Level 8.7 mg/dL (8.5-10.1) Total Bilirubin 0.5 mg/dL (0.2-1.0) Aspartate Amino Transf (AST/SGOT) 17 U/L (15-37) Alanine Aminotransferase (ALT/SGPT) 20 U/L (16-63) Alkaline Phosphatase 96 U/L (46-116) Troponin I Quantitative < 0.017 ng/mL (0.000-0.055) Total Protein 6.8 g/dL (6.4-8.2) Albumin 3.3 g/dL (3.4-5.0) Albumin/Globulin Ratio 0.9 (1.0-1.7) Ethyl Alcohol Level < 3 mg/dL (0-10) Images Images CT Head - 1. No evidence of acute intracranial hemorrhage or mass. 2. Mild chronic small vessel ischemic changes and atrophy. VTE Prophylaxis Ordered VTE Prophylaxis Devices: Yes VTE Pharmacological Prophylaxi: Yes Assessment/Plan Assessment/Plan A/P: Acute encephalopathy - likely metabolic, multifactorial, possible CVA vs wernickes vs seizure. Consulted neurology Left side weakness - TIA as he is improving, ASA, statin. Consult neuro. MRI to r/o CVA. Was past time for tPA as his last normal was last night before bed. Generalized weakness, chronic - progressive. 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
[2018-07-25 17:34] VITALS: BP 158/75
[2018-07-25 19:15] VITALS: BP 140/73
--- NOTE | 2018-07-25 19:17 | PDOC2 ---
NEUROLOGY CONSULT Date of Admission Date of Admission DATE: 07/25/18 TIME: 19:07 Reason for Consult Reason for Consult: IMPRESSION: Confusion. MS changes. Left side weakness. Generalized weakness, chronic. HTN. HLD. MT s/p stents. Seizure, ETOH related. Smoking. Former drinker. RECOMMENDATIONS/PLAN: [id number] mg daily. Lab: see orders. Brain MRI w/o contrast. Smoking cessation. Treat medical diseases. HISTORY OF THE PRESENT ILLNESS: This is a 77-Y-old male who presents to the ER after being found unresponsive by his on the couch. Patient has repetitive questioning during exam and some confusion. Patient states that he got out of bed around 7 or 8:00 this morning and felt different. The probing showed that he felt weak on his left side. Patient states that his knee gave out and that he doesn't really remember much after that point. Had a seizure 20 years ago also had a history of a TIA. PAST MEDICAL HISTORY: Please see above. PAST SURGERY HISTORY: S/P stents. ALLERGY: Prednisone (Verified Allergy, Intermediate, 04/26/18) MEDICATIONS: Refer to [facility] FAMILY HISTORY: Non contributory. SOCIAL HISTORY: Lives at home with his . Denies illicit drug use. He smokes 1.5 pack of cigarettes a day for over 20 years. He drank alcohol in the past but quit for 20 years now. REVIEW OF SYSTEMS: Constitutional: No malnutrition, cachexia. Head: No traumatic brain or head injury. Skin: No edema, or rash. Ear: No infection. Eyes: No vision loss or color blindness. Nose: No bleeding or purulent discharges. Hearing: Hearing decrease. Neck: No injury. Cardiac: MT, CAD, s/p stents, HTN, HLD. Pulmonary: smoking. GI: No GI ulcer, GI bleeding. Urinary/genital: No dysuria, incontinence, urinary retention. Endocrinologic: No cousin face, craniofacial dysmorphism, polydactyly. Skeletomuscular: Generalized weakness. Neurological: see HP. Psychiatric: Denies drug use/abuse. Otherwise, not [id number] review of systems. PHYSICAL EXAMINATION: General appearance is in subacute distress. HEENT: Normocephalic and nontraumatic. Eyes, nose, ears, and throat are unremarkable. Neck is supple. No lymphadenopathy. No crepitus. Cardiovascular: S1, S2, regular rate and rhythm. Pulmonary: Clear to auscultation bilaterally. Abdomen: Bowel sounds are positive. Abdomen is soft, nontender, and nondistended. Extremities: No rash, lesions, or edema. No restriction of range of motion NEUROLOGICAL EXAMINATION: Awake. Oriented partially to time, but knew place and person. PERRL. EOMI. CN: no focal findings. Muscle tone: within normal. Muscle strength: 5 DTR: 2 Plantar reflex: Neutral response bilaterally Gait: not examined in bed. Sensory exam: no abnormal findings. No cerebellar signs elicited. F-T-N test fine. Current Medications Current Medications Current Medications Iohexol (Omnipaque 300 Mg/ml) 60 ml 1X ONCE IV Last administered on 07/25/18at 14:30; Start 07/25/18 at 14:15; Stop 07/25/18 at 14:16; Status DC Info (CONTRAST GIVEN -- Rx MONITORING) 1 each PRN DAILY PRN MC SEE COMMENTS; Start 07/25/18 at 14:15; Stop 07/27/18 at 14:14 Sodium Chloride 500 ml @ 500 mls/hr 1X ONCE IV Last administered on 07/25/18at 15:05; Start 07/25/18 at 14:30; Stop 07/25/18 at 15:29; Status DC Ondansetron HCl (Zofran) 4 mg PRN Q8HRS PRN IV NAUSEA/VOMITING; Start 07/25/18 at 15:45; Stop 07/26/18 at 15:44 Morphine Sulfate (Morphine Sulfate) 2 mg PRN Q2HR PRN IV PAIN; Start 07/25/18 at 15:45; Stop 07/26/18 at 15:44 Aspirin (Stephania Aspirin) 325 mg DAILYWBKFT PO ; Start 07/25/18 at 18:30 Active Scripts Active Reported Preservision Areds Softgel (Vit A/Vit C/Vit E/Zinc/Copper) 1 Each Capsule 1 Each PO BID Protonix (Pantoprazole Sodium) 20 Mg Tablet.dr 1 Tab PO DAILY Tamsulosin Hcl 0.4 Mg Cap.er.24h 1 Cap PO DAILY Clopidogrel (Clopidogrel Bisulfate) 75 Mg Tablet 1 Tab PO DAILY Coreg (Carvedilol) 6.25 Mg Tablet 6.25 Mg PO BIDWMEALS Lipitor (Atorvastatin Calcium) 80 Mg Tablet 1 Tab PO DAILY Allergies Allergies: Allergies Coded Allergies Type Severity Reaction Last Updated Verified prednisone Allergy Intermediate 04/26/18 Yes ROS Review of System The patient denies any associated fevers, chills, headache, ear pain, rhinorrhea, sore throat, stiff neck, productive cough, chest pain, shortness of breath, back or flank pain, abdominal pain, nausea, vomiting, diarrhea, constipation, dysuria, rash, numbness, weakness, tingling, incontinence, difficulty ambulating, or diaphoresis. Physical Exam Physical Exam General: Well developed, well nourished, no acute distress, well appearing HEENT: Pupils equally round and reactive to light, EOMI, no discharge, normal conjunctiva Neck: Supple, no nuchal rigidity, no JVD, trachea midline, no tenderness Cardiac: RRR, no murmurs, no gallops, no rubs Chest/Lungs: CTAB, no wheeze, no rhonchi, no crackles Abdomen: soft, non-distended, no guarding, no peritoneal signs, non-tender Back: No tenderness Extremities: no edema, pulses intact, non-tender,capillary refill <3 sec bilateral upper and lower extremities, Neuro: Alert and oriented x 4, no focal deficits, normal speech Vitals Vitals: Vital Signs Date Time Temp Pulse Resp B/P (MAP) Pulse Ox O2 Delivery O2 Flow Rate FiO2 07/25/18 17:34 98.4 81 17 158/75 (102) 99 Room Air 98.4 Labs Labs Laboratory Tests Test 07/25/18 13:20 White Blood Count 9.8 x10^3/uL (4.0-11.0) Red Blood Count 3.98 x10^6/uL (4.30-5.70) Hemoglobin 13.0 g/dL (13.0-17.5) Hematocrit 38.8 % (39.0-53.0) Mean Corpuscular Volume 97 fL (79-100) Mean Corpuscular Hemoglobin 33 pg (25-35) Mean Corpuscular Hemoglobin Concent 33 g/dL (31-37) Red Cell Distribution Width 17.8 % (11.5-14.5) Platelet Count 386 x10^3/uL (140-400) Neutrophils (%) (Auto) 70 % (31-73) Lymphocytes (%) (Auto) 21 % (24-48) Monocytes (%) (Auto) 9 % (0-9) Eosinophils (%) (Auto) 0 % (0-3) Basophils (%) (Auto) 0 % (0-3) Neutrophils # (Auto) 6.8 x10^3uL (1.8-7.7) Lymphocytes # (Auto) 2.1 x10^3/uL (1.0-4.8) Monocytes # (Auto) 0.9 x10^3/uL (0.0-1.1) Eosinophils # (Auto) 0.0 x10^3/uL (0.0-0.7) Basophils # (Auto) 0.0 x10^3/uL (0.0-0.2) Prothrombin Time 12.3 SEC (11.7-14.0) Prothromb Time International Ratio 0.9 (0.8-1.1) Activated Partial Thromboplast Time 27 SEC (24-38) Sodium Level 136 mmol/L (136-145) Potassium Level 3.7 mmol/L (3.5-5.1) Chloride Level 100 mmol/L (98-107) Carbon Dioxide Level 23 mmol/L (21-32) Anion Gap 13 (6-14) Blood Urea Nitrogen 18 mg/dL (8-26) Creatinine 1.2 mg/dL (0.7-1.3) Estimated GFR (Cockcroft-Gault) 58.7 BUN/Creatinine Ratio 15 (6-20) Glucose Level 144 mg/dL (70-99) Calcium Level 8.7 mg/dL (8.5-10.1) Total Bilirubin 0.5 mg/dL (0.2-1.0) Aspartate Amino Transf (AST/SGOT) 17 U/L (15-37) Alanine Aminotransferase (ALT/SGPT) 20 U/L (16-63) Alkaline Phosphatase 96 U/L (46-116) Troponin I Quantitative < 0.017 ng/mL (0.000-0.055) Total Protein 6.8 g/dL (6.4-8.2) Albumin 3.3 g/dL (3.4-5.0) Albumin/Globulin Ratio 0.9 (1.0-1.7) Vitamin B12 Level 320 pg/mL (247-911) Thyroid Stimulating Hormone (TSH) 0.919 uIU/mL (0.358-3.74) Ethyl Alcohol Level < 3 mg/dL (0-10) Laboratory Tests Test 07/25/18 13:20 White Blood Count 9.8 x10^3/uL (4.0-11.0) Red Blood Count 3.98 x10^6/uL (4.30-5.70) Hemoglobin 13.0 g/dL (13.0-17.5) Hematocrit 38.8 % (39.0-53.0) Mean Corpuscular Volume 97 fL (79-100) Mean Corpuscular Hemoglobin 33 pg (25-35) Mean Corpuscular Hemoglobin Concent 33 g/dL (31-37) Red Cell Distribution Width 17.8 % (11.5-14.5) Platelet Count 386 x10^3/uL (140-400) Neutrophils (%) (Auto) 70 % (31-73) Lymphocytes (%) (Auto) 21 % (24-48) Monocytes (%) (Auto) 9 % (0-9) Eosinophils (%) (Auto) 0 % (0-3) Basophils (%) (Auto) 0 % (0-3) Neutrophils # (Auto) 6.8 x10^3uL (1.8-7.7) Lymphocytes # (Auto) 2.1 x10^3/uL (1.0-4.8) Monocytes # (Auto) 0.9 x10^3/uL (0.0-1.1) Eosinophils # (Auto) 0.0 x10^3/uL (0.0-0.7) Basophils # (Auto) 0.0 x10^3/uL (0.0-0.2) Prothrombin Time 12.3 SEC (11.7-14.0) Prothromb Time International Ratio 0.9 (0.8-1.1) Activated Partial Thromboplast Time 27 SEC (24-38) Sodium Level 136 mmol/L (136-145) Potassium Level 3.7 mmol/L (3.5-5.1) Chloride Level 100 mmol/L (98-107) Carbon Dioxide Level 23 mmol/L (21-32) Anion Gap 13 (6-14) Blood Urea Nitrogen 18 mg/dL (8-26) Creatinine 1.2 mg/dL (0.7-1.3) Estimated GFR (Cockcroft-Gault) 58.7 BUN/Creatinine Ratio 15 (6-20) Glucose Level 144 mg/dL (70-99) Calcium Level 8.7 mg/dL (8.5-10.1) Total Bilirubin 0.5 mg/dL (0.2-1.0) Aspartate Amino Transf (AST/SGOT) 17 U/L (15-37) Alanine Aminotransferase (ALT/SGPT) 20 U/L (16-63) Alkaline Phosphatase 96 U/L (46-116) Troponin I Quantitative < 0.017 ng/mL (0.000-0.055) Total Protein 6.8 g/dL (6.4-8.2) Albumin 3.3 g/dL (3.4-5.0) Albumin/Globulin Ratio 0.9 (1.0-1.7) Vitamin B12 Level 320 pg/mL (247-911) Thyroid Stimulating Hormone (TSH) 0.919 uIU/mL (0.358-3.74) Ethyl Alcohol Level < 3 mg/dL (0-10) YOLANDA SIMMONS MD July 25, 2018 19:17
[2018-07-25] MEDS ORDERED: DEXTROSE 50% 25 GM / 50ML DISP.SYRIN. IV PRN (20:45)
[2018-07-25] MEDS: INSULIN LISPRO 300 UNITS/3 ML INSULN.PEN. SQ SCH (21:00)
[2018-07-25] MEDS: MULTIVITAMIN I-VITE TABLET. PO SCH (21:37)
[2018-07-25] MEDS: ASPIRIN 325 MG TABLET PO SCH (21:37)
[2018-07-25] MEDS: ATORVASTATIN CALCIUM 40 MG TABLET. PO SCH (21:37)
[2018-07-25] MEDS: CARVEDILOL 6.25 MG TABLET. PO SCH (21:42)
[2018-07-26] MEDS ORDERED: BRIM5DRO2 OP (00:23)
[2018-07-26] MEDS ORDERED: BRIN10DR EACHEYE (00:23)
[2018-07-26] MEDS ORDERED: LATA2.5D3 EACHEYE (00:23)
[2018-07-26] MEDS ORDERED: MAGN400C PO (00:23)
[2018-07-26 03:54] VITALS: BP 135/73
[2018-07-26 07:15] VITALS: BP 145/84
[2018-07-26] MEDS: PANTOPRAZOLE 40 MG TABLET.DR. PO SCH (07:30)
[2018-07-26] MEDS: ASPIRIN 325 MG TABLET PO SCH (08:00)
[2018-07-26] MEDS: CARVEDILOL 6.25 MG TABLET. PO SCH ×2 (08:00→17:00)
[2018-07-26] MEDS: INSULIN LISPRO 300 UNITS/3 ML INSULN.PEN. SQ SCH ×4 (08:00→21:00)
[2018-07-26 08:08] LABS: CALCIUM 8.2 mg/dL (8.5-10.1); CHOLESTEROL/HDL RATIO 2.9; CREATININE 0.8 mg/dL (0.7-1.3); GFR 93.7; POTASSIUM 3.2 mmol/L (3.5-5.1)
[2018-07-26] MEDS: BRIMONIDINE 0.2% OPHTH SOLUTION 5ML BOTTLE. OU SCH (09:00)
[2018-07-26] MEDS: DORZOLAMIDE 2% OPHTH SOLUTION 10ML BOTTLE. OU SCH ×2 (09:00→21:41)
[2018-07-26] MEDS: TAMSULOSIN 0.4 MG CAP.ER.24H. PO SCH (09:00)
[2018-07-26] MEDS: TIMOLOL 0.5% OPHTH SOLUTION 5ML BOTTLE. OU SCH (09:00)
[2018-07-26] MEDS: CLOPIDOGREL BISULFATE 75 MG TABLET PO SCH (09:00)
[2018-07-26] MEDS: MULTIVITAMIN I-VITE TABLET. PO SCH ×3 (09:00→21:41)
--- NOTE | 2018-07-26 10:38 | RAD ---
MRI Brain without contrast History: Mental status change, left-sided weakness Technique: Multiplanar, multisequential noncontrast MR imaging was performed of the brain. Comparison: None Findings: There is no evidence of recent infarct or cytotoxic edema. Ventricular size is proportionate to the sulcal spaces. Mild prominence of the supratentorial subarachnoid spaces greater near vertex is not unexpected for the patient's age.There is no significant midline shift, intraaxial mass effect, or focal abnormal extra-axial fluid collection. There is scattered overall mild T2 and FLAIR hyperintense signal abnormality of the supratentorial parenchyma bilaterally greatest of the bilateral parietal and periatrial white matter. There is no significant hemosiderin deposition of the brain parenchyma. There is preservation of the major intracranial flow-voids at the skull base. There is very mild thickening of the mastoid air cells greater on the left inferiorly. The cerebellar tonsils are normal in location. There is no significant abnormality of the pineal gland or pituitary gland. There is mild bilateral ethmoid air cell and left maxillary sinus mucosal thickening. There is right maxillary sinus mucous retention cyst about 1.8 cm. There is negligible frontal sinus mucosal thickening. There has been lens surgery bilaterally, slightly disconjugate gaze. There is preserved marrow signal of the clivus. Impression: 1. There is no evidence of recent infarct or intracranial mass effect. Scattered overall mild T2 and FLAIR hyperintense signal abnormality of the supratentorial parenchyma bilaterally is nonspecific, more commonly due to chronic microvascular ischemic disease in a patient this age. 2. There is paranasal sinus mucosal thickening as stated. Electronically signed by: Jaxson Hidalgo MD (07/26/2018 10:35 AM) [id number]
[2018-07-26 11:04] VITALS: BP 148/68
[2018-07-26] MEDS: THIAMINE 100 MG TABLET. PO SCH ×2 (11:30→21:41)
[2018-07-26] MEDS ORDERED: POTASSIUM CHLORIDE 20 MEQ TABLET.ER. PO ONE (11:30)
[2018-07-26] MEDS ORDERED: CYANOCOBALAMIN (VITAMIN B-12) 1,000 MCG/ML VIAL IM ONE (11:30)
--- NOTE | 2018-07-26 14:37 | NUR ---
SW following pt for anticipated dc needs. Chart reviewed. Pt lives at home with spouse. PT/OT recommends home health. SW will arrange home health if ordered by Physician.
--- NOTE | 2018-07-26 15:00 | NUR ---
Wound care Received wound screening on pt, head to toe skin inspection completed, no wounds noted. WC will sign off at this time.
[2018-07-26 15:03] VITALS: BP 129/67
[2018-07-26] MEDS: POTASSIUM CL 20MEQ D5-0.45NACL 1,000 ML IV SCH (16:17)
--- NOTE | 2018-07-26 16:33 | NUR ---
Bedside Swallow Evaluation completed. Please refer to full report for additional details. Impressions: Mild pharyngeal dysphagia w/ pt complaint of swallowing difficulty, recent wt loss and subtle but consistent s/s aspiration across consistencies. No safe consistency identified at evaluation and NPO is recommended. Videoswallow warranted to further assess pharyngeal swallow and c/o swallowing difficulty. Possible s/s esophageal dysphagia per pt complaint as well. Recommendations: NPO w/ risk of aspiration. Videoswallow to further assess pharyngeal swallow. Possible GI referral pending videoswallow results.
--- NOTE | 2018-07-26 17:04 | PDOC ---
PROGRESS NOTES Assessment Assessment Confusion. MS changes. Left side weakness. Generalized weakness, chronic. HTN. HLD. [place] s/p stents. Seizure, ETOH related. Smoking. Former drinker. No evidence of acute CVA this time. RECOMMENDATIONS/PLAN: Plavix 75 mg daily. Continue Lipitor HS. EEG. Smoking cessation. Treat medical diseases. HISTORY OF THE PRESENT ILLNESS: This is a 77-Y-old male who presents to the ER after being found unresponsive by his on the couch. Patient has repetitive questioning during exam and some confusion. Patient states that he got out of bed around 7 or 8:00 this morning and felt different. The probing showed that he felt weak on his left side. P atient states that his knee gave out and that he doesn't really remember much after that point. Had a seizure 20 years ago also had a history of a TIA. PAST MEDICAL HISTORY: Please see above. PAST SURGERY HISTORY: S/P stents. ALLERGY: Prednisone (Verified Allergy, Intermediate, 04/26/18) MEDICATIONS: Refer to [facility] FAMILY HISTORY: Non contributory. SOCIAL HISTORY: Lives at home with his . Denies illicit drug use. He smokes 1.5 pack of cigarettes a day for over 20 years. He drank alcohol in the past but quit for 20 years now. REVIEW OF SYSTEMS: Constitutional: No malnutrition, cachexia. Head: No traumatic brain or head injury. Skin: No edema, or rash. Ear: No infection. Eyes: No vision loss or color blindness. Nose: No bleeding or purulent discharges. Hearing: Hearing decrease. Neck: No injury. Cardiac: MN, CAD, s/p stents, HTN, HLD. Pulmonary: smoking. GI: No GI ulcer, GI bleeding. Urinary/genital: No dysuria, incontinence, urinary retention. Endocrinologic: No cousin face, craniofacial dysmorphism, polydactyly. Skeletomuscular: Generalized weakness. Neurological: see HP. Psychiatric: Denies drug use/abuse. Otherwise, not [id number] review of systems. PHYSICAL EXAMINATION: General appearance is in subacute distress. HEENT: Normocephalic and nontraumatic. Eyes, nose, ears, and throat are unremarkable. Neck is supple. No lymphadenopathy. No crepitus. Cardiovascular: S1, S2, regular rate and rhythm. Pulmonary: Clear to auscultation bilaterally. Abdomen: Bowel sounds are positive. Abdomen is soft, nontender, and nondistended. Extremities: No rash, lesions, or edema. No restriction of range of motion NEUROLOGICAL EXAMINATION: Awake. Oriented partially to time, but knew place and person. PERRL. EOMI. CN: no focal findings. Muscle tone: within normal. Muscle strength: 5 DTR: 2 Plantar reflex: Neutral response bilaterally Gait: not examined in bed. Sensory exam: no abnormal findings. No cerebellar signs elicited. F-T-N test fine. Objective Objective Vital Signs Date Time Temp Pulse Resp B/P (MAP) Pulse Ox O2 Delivery O2 Flow Rate FiO2 07/26/18 15:03 98.3 69 20 129/67 (87) 98 Room Air 98.3 Intake and Output 07/26/18 07:00 Intake Total 500 ml Output Total 200 ml Balance 300 ml Intake Oral 0 ml IV Total 500 ml Output Urine Total 200 ml # Voids 1 Vitals Signs Vitals VS - Last 72 Hours, by Label Date Time Temp Pulse Resp B/P (MAP) Pulse Ox O2 Delivery O2 Flow Rate FiO2 07/26/18 15:03 98.3 69 20 129/67 (87) 98 Room Air 98.3 07/26/18 11:04 97.6 67 18 148/68 (94) 99 Room Air 97.6 07/26/18 08:00 Room Air 07/26/18 08:00 67 148/68 07/26/18 07:15 97.3 84 18 145/84 (104) 95 Room Air 97.3 07/26/18 03:54 97.6 91 18 135/73 (93) 98 Room Air 97.6 07/26/18 01:32 Room Air 07/25/18 22:29 Room Air 07/25/18 21:42 81 140/73 07/25/18 20:00 Room Air 07/25/18 19:15 98.2 81 18 140/73 (95) 99 Room Air 98.2 07/25/18 17:34 98.4 81 17 158/75 (102) 99 Room Air 98.4 07/25/18 16:48 79 18 100 07/25/18 16:18 88 18 100 07/25/18 15:48 80 16 100 07/25/18 14:48 84 20 99 07/25/18 14:18 91 20 99 07/25/18 14:00 86 20 99 5/13/19 13:13 97.7 93 16 146/78 (100) 100 Room Air 97.7 Laboratory Laboratory Laboratory Tests Test 07/25/18 21:41 07/26/18 06:46 07/26/18 07:36 07/26/18 11:18 Glucose (Fingerstick) 97 mg/dL (70-99) 92 mg/dL (70-99) 92 mg/dL (70-99) Sodium Level 138 mmol/L (136-145) Potassium Level 3.2 mmol/L (3.5-5.1) Chloride Level 102 mmol/L (98-107) Carbon Dioxide Level 25 mmol/L (21-32) Anion Gap 11 (6-14) Blood Urea Nitrogen 16 mg/dL (8-26) Creatinine 0.8 mg/dL (0.7-1.3) Estimated GFR (Cockcroft-Gault) 93.7 Glucose Level 93 mg/dL (70-99) Calcium Level 8.2 mg/dL (8.5-10.1) Triglycerides Level 85 mg/dL (0-150) Cholesterol Level 98 mg/dL (0-200) LDL Cholesterol, Calculated 47 mg/dL (0-100) VLDL Cholesterol, Calculated 17 mg/dL (0-40) Non-HDL Cholesterol Calculated 64 mg/dL (0-129) HDL Cholesterol 34 mg/dL (40-60) Cholesterol/HDL Ratio 2.9 Medication Medications Current Medications Aspirin (Stephania Aspirin) 325 mg DAILYWBKFT PO Last administered on 07/25/18at 21:37; Start 07/25/18 at 18:30 Atorvastatin Calcium (Lipitor) 80 mg QHS PO Last administered on 07/25/18at 21:37; Start 07/25/18 at 21:00 Brimonidine Tartrate (Alphagan) 1 drop DAILY OU ; Start 07/26/18 at 09:00 Carvedilol (Coreg) 6.25 mg BIDWMEALS PO Last administered on 07/25/18at 21:42; Start 07/25/18 at 21:00 Clopidogrel Bisulfate (Plavix) 75 mg DAILY PO ; Start 07/26/18 at 09:00 Cyanocobalamin (Vitamin B-12) 1,000 mcg 1X ONCE IM Last administered on 07/26/18at 16:21; Start 07/26/18 at 11:30; Stop 07/26/18 at 11:31; Status DC Dextrose (Dextrose 50%-Water Syringe) 12.5 gm PRN Q15MIN PRN IV SEE COMMENTS; Start 07/25/18 at 20:45 Dorzolamide HCl (Trusopt) 1 drop BID OU ; Start 07/26/18 at 09:00 Enoxaparin Sodium (Lovenox 40mg Syringe) 40 mg Q24H SQ ; Start 07/26/18 at 21:00 Enoxaparin Sodium (Lovenox Per Pharmacy Prophylaxis Dosing) 1 each PRN DAILY PRN MC SEE COMMENTS; Start 07/26/18 at 17:00; Stop 07/26/18 at 17:00; Status DC Insulin Human Lispro (HumaLOG) 0-5 UNITS TIDWMEALHC SQ ; Start 07/25/18 at 21:00 Latanoprost (Xalatan) 1 drop QHS OU ; Start 07/26/18 at 21:00 Multivitamins/ Minerals (I-Floresita) 1 tab BID PO Last administered on 07/25/18at 21:37; Start 07/25/18 at 21:00 Pantoprazole Sodium (Protonix) 40 mg DAILYAC PO ; Start 07/26/18 at 07:30 Potassium Chloride/Dextrose/ Sod Cl 1,000 ml @ 100 mls/hr Q10H IV Last administered on 07/26/18at 16:17; Start 07/26/18 at 15:30 Potassium Chloride (Klor-Con) 20 meq DAILYWBKFT PO ; Start 07/27/18 at 08:00 Potassium Chloride (Klor-Con) 40 meq 1X ONCE PO ; Start 07/26/18 at 11:30; Stop 07/26/18 at 11:31; Status DC Tamsulosin HCl (Flomax) 0.4 mg DAILY PO ; Start 07/26/18 at 09:00 Thiamine Mononitrate (Vitamin B-1) 100 mg DAILY PO ; Start 07/26/18 at 11:30 Timolol Maleate (Timoptic 0.5% Ophth) 1 drop DAILY OU ; Start 07/26/18 at 09:00 Vitamin B Complex (Folbic Tablet) 1 tab DAILY PO ; Start 07/27/18 at 09:00 Comment Review of Relevant I have reviewed the following items suzanne (where applicable) has been applied. YOLANDA SIMMONS MD July 26, 2018 17:04
--- NOTE | 2018-07-26 18:20 | EEG ---
DATE OF SERVICE: 07/26/2018 ELECTROENCEPHALOGRAM NUMBER: [id number]. OBJECTIVE: This is a 77-year-old male patient in confusional episodes. EEG was requested to evaluate cerebral activity and help rule out seizure. METHODS: Twenty electrodes were applied according to the international 10-20 electrode placement system. EKG monitoring, hyperventilation, intermittent photic stimulation, monopolar and bipolar montages are routinely utilized. The record was obtained on a digital system with video monitoring. FINDINGS: 1. Background: The patient was recorded in the awake, drowsy and sleep states. The overall background amplitude is 5-15 microvolts. A posterior dominant rhythm of 7-8 Hz is observed with superimposed slowing in the theta and delta frequencies throughout the entire recording. 2. Abnormalities: No specific epileptiform discharge or electrographic seizure is seen. Diffuse slowing in the theta and delta frequencies throughout the entire recording. 3. Activation: Hyperventilation was performed with fair efforts and normal response. Intermittent photic stimulation was performed with photic driving. IMPRESSION: This electroencephalogram is an abnormal study for the awake, drowsy, and sleep states. There is superimposed slowing in the theta and delta frequencies throughout the entire recording. No focal, lateralizing, specific epileptiform discharge or electrographic seizure is seen. This pattern of electroencephalogram may suggest encephalopathy. YOLANDA SIMMONS MD DR: WHIT/evon JOB#: [id number] / [id number] DIANA
[2018-07-26 19:30] VITALS: BP 135/66
[2018-07-26] MEDS: ATORVASTATIN CALCIUM 40 MG TABLET. PO SCH ×2 (21:00→21:41)
[2018-07-26] MEDS: LATANOPROST 0.005% OPHTH SOLUTION 2.5ML BOTTLE. OU SCH (21:41)
[2018-07-26] MEDS: ENOXAPARIN 40 MG/0.4 ML SYRINGE. SQ SCH (21:42)
[2018-07-26 23:45] VITALS: BP 122/63
[2018-07-27] MEDS: POTASSIUM CL 20MEQ D5-0.45NACL 1,000 ML IV SCH ×3 (01:30→20:51)
[2018-07-27 03:40] VITALS: BP 132/78
[2018-07-27 07:15] VITALS: BP 138/80
[2018-07-27] MEDS: PANTOPRAZOLE 40 MG TABLET.DR. PO SCH (07:30)
[2018-07-27] MEDS: INSULIN LISPRO 300 UNITS/3 ML INSULN.PEN. SQ SCH (07:38)
[2018-07-27] MEDS: POTASSIUM CHLORIDE 20 MEQ TABLET.ER. PO SCH (07:38)
[2018-07-27] MEDS: CARVEDILOL 6.25 MG TABLET. PO SCH ×2 (07:38→17:00)
[2018-07-27] MEDS: THIAMINE 100 MG TABLET. PO SCH (07:39)
[2018-07-27] MEDS: VITAMIN B12,B9,B6 COMPLEX 1 TABLET. PO SCH (07:39)
[2018-07-27] MEDS: MULTIVITAMIN I-VITE TABLET. PO SCH ×2 (07:39→20:50)
[2018-07-27] MEDS: ASPIRIN 325 MG TABLET PO SCH (08:00)
[2018-07-27] MEDS: TIMOLOL 0.5% OPHTH SOLUTION 5ML BOTTLE. OU SCH (08:43)
[2018-07-27] MEDS: DORZOLAMIDE 2% OPHTH SOLUTION 10ML BOTTLE. OU SCH ×2 (08:43→20:50)
[2018-07-27] MEDS: BRIMONIDINE 0.2% OPHTH SOLUTION 5ML BOTTLE. OU SCH (08:43)
[2018-07-27] MEDS: CLOPIDOGREL BISULFATE 75 MG TABLET PO SCH (08:48)
[2018-07-27] MEDS: TAMSULOSIN 0.4 MG CAP.ER.24H. PO SCH (08:48)
[2018-07-27] MEDS ORDERED: BARIUM SULFATE 40% (APPLE) 148 GM PWD. PO ONE (10:00)
[2018-07-27 11:10] VITALS: BP 128/77
--- NOTE | 2018-07-27 11:28 | RAD ---
Video dysphasia study, 07/27/2018: History: Dysphagia, failed bedside exam The swallowing mechanism was examined fluoroscopically in the lateral projection with the patient ingested a variety of food materials mixed with barium. 2.6 minutes of fluoroscopy time was utilized. One video fluoroscopic loop was recorded by a member of the speech Department. On the first small swallow of thin liquid barium there was deep laryngeal penetration. With subsequent swallows of the thin liquid barium there was no significant additional laryngeal penetration or fabiola aspiration. The majority of the barium bolus passed normally through the cervical esophagus. When ingesting the thicker materials there was initially no laryngeal penetration or aspiration. There tended be a moderate amount of vallecular residue with the thicker materials and barium coated solids.. At the end of the exam when ingesting the mixture of solid and thin materials there was one episode of minimal laryngeal penetration and aspiration. IMPRESSION: Minimal intermittent laryngeal penetration as described above, with one episode of minimal fabiola aspiration when ingesting the mixed consistency materials.
--- NOTE | 2018-07-27 13:08 | PDOC ---
PROGRESS NOTES Chief Complaint Chief Complaint Acute encephalopathy - resolved, no etiology evident, vitamin B12 deficiency being supplemented Left side weakness - TIA as he is improving, ASA, statin. Consult neuro. MRI to r/o CVA. Was past time for tPA as his last normal was last night before bed. Generalized weakness, chronic - progressive. likely nutritional Unintentional weight loss - patient notes 20# weight loss for the past 6 months HTN -will cont meds HLD - needs high intensity statin with CVA sx [place] s/p stents - monitor Seizure, ETOH related - stopped drinking, no need for CIWA, will monitor, however Smoking - counseled on cessation, offered nicotine patch Plan: awaiting for MRI of the head hopefully discharge soon History of Present Illness History of Present Illness Patient laying in bed in no apparent distress. The patient does not percent any new neurological deficits he does have a residual left sided numbness sensation since his stroke. Discussed possibility of his episode being due to vertigo. Explained the disease process to the patient and MRI is pending at the present time plan of care explaining detail as well CONCERNS ADDRESS TO THE [facility] MY [facility]ILITIES Vitals Vitals Vital Signs Date Time Temp Pulse Resp B/P (MAP) Pulse Ox O2 Delivery O2 Flow Rate FiO2 07/27/18 11:10 98.8 73 18 128/77 (94) 97 Room Air 98.8 Physical Exam General: Alert, Cooperative, No acute distress Abdomen: Normal bowel sounds, Soft, No tenderness, No hepatosplenomegaly, No masses Extremities: No clubbing, No cyanosis, No edema, Normal pulses, No t enderness/swelling Skin: No rashes, No breakdown, No significant lesion Labs LABS Laboratory Tests Test 07/26/18 16:54 07/26/18 20:39 07/27/18 07:23 Glucose (Fingerstick) 120 mg/dL (70-99) 106 mg/dL (70-99) 113 mg/dL (70-99) Review of Systems Review of Systems Positive aspiration otherwise 14 point review of system is negative Assessment and Plan Assessmemt and Plan Problems Medical Problems: (1) Transient ischemic attack (TIA) Status: Acute Comment Review of Relevant I have reviewed the following items suzanne (where applicable) has been applied. Labs Laboratory Tests Test 07/25/18 13:20 07/25/18 21:41 07/26/18 06:46 07/26/18 07:36 White Blood Count 9.8 x10^3/uL (4.0-11.0) Red Blood Count 3.98 x10^6/uL (4.30-5.70) Hemoglobin 13.0 g/dL (13.0-17.5) Hematocrit 38.8 % (39.0-53.0) Mean Corpuscular Volume 97 fL (79-100) Mean Corpuscular Hemoglobin 33 pg (25-35) Mean Corpuscular Hemoglobin Concent 33 g/dL (31-37) Red Cell Distribution Width 17.8 % (11.5-14.5) Platelet Count 386 x10^3/uL (140-400) Neutrophils (%) (Auto) 70 % (31-73) Lymphocytes (%) (Auto) 21 % (24-48) Monocytes (%) (Auto) 9 % (0-9) Eosinophils (%) (Auto) 0 % (0-3) Basophils (%) (Auto) 0 % (0-3) Neutrophils # (Auto) 6.8 x10^3uL (1.8-7.7) Lymphocytes # (Auto) 2.1 x10^3/uL (1.0-4.8) Monocytes # (Auto) 0.9 x10^3/uL (0.0-1.1) Eosinophils # (Auto) 0.0 x10^3/uL (0.0-0.7) Basophils # (Auto) 0.0 x10^3/uL (0.0-0.2) Prothrombin Time 12.3 SEC (11.7-14.0) Prothromb Time International Ratio 0.9 (0.8-1.1) Activated Partial Thromboplast Time 27 SEC (24-38) Sodium Level 136 mmol/L (136-145) 138 mmol/L (136-145) Potassium Level 3.7 mmol/L (3.5-5.1) 3.2 mmol/L (3.5-5.1) Chloride Level 100 mmol/L (98-107) 102 mmol/L (98-107) Carbon Dioxide Level 23 mmol/L (21-32) 25 mmol/L (21-32) Anion Gap 13 (6-14) 11 (6-14) Blood Urea Nitrogen 18 mg/dL (8-26) 16 mg/dL (8-26) Creatinine 1.2 mg/dL (0.7-1.3) 0.8 mg/dL (0.7-1.3) Estimated GFR (Cockcroft-Gault) 58.7 93.7 BUN/Creatinine Ratio 15 (6-20) Glucose Level 144 mg/dL (70-99) 93 mg/dL (70-99) Calcium Level 8.7 mg/dL (8.5-10.1) 8.2 mg/dL (8.5-10.1) Total Bilirubin 0.5 mg/dL (0.2-1.0) Aspartate Amino Transf (AST/SGOT) 17 U/L (15-37) Alanine Aminotransferase (ALT/SGPT) 20 U/L (16-63) Alkaline Phosphatase 96 U/L (46-116) Troponin I Quantitative < 0.017 ng/mL (0.000-0.055) Total Protein 6.8 g/dL (6.4-8.2) Albumin 3.3 g/dL (3.4-5.0) Albumin/Globulin Ratio 0.9 (1.0-1.7) Vitamin B12 Level 320 pg/mL (247-911) Thyroid Stimulating Hormone (TSH) 0.919 uIU/mL (0.358-3.74) Ethyl Alcohol Level < 3 mg/dL (0-10) Glucose (Fingerstick) 97 mg/dL (70-99) 92 mg/dL (70-99) Triglycerides Level 85 mg/dL (0-150) Cholesterol Level 98 mg/dL (0-200) LDL Cholesterol, Calculated 47 mg/dL (0-100) VLDL Cholesterol, Calculated 17 mg/dL (0-40) Non-HDL Cholesterol Calculated 64 mg/dL (0-129) HDL Cholesterol 34 mg/dL (40-60) Cholesterol/HDL Ratio 2.9 Test 07/26/18 11:18 07/26/18 16:54 07/26/18 20:39 07/27/18 07:23 Glucose (Fingerstick) 92 mg/dL (70-99) 120 mg/dL (70-99) 106 mg/dL (70-99) 113 mg/dL (70-99) Laboratory Tests Test 07/26/18 16:54 07/26/18 20:39 07/27/18 07:23 Glucose (Fingerstick) 120 mg/dL (70-99) 106 mg/dL (70-99) 113 mg/dL (70-99) Medications Current Medications Iohexol (Omnipaque 300 Mg/ml) 60 ml 1X ONCE IV Last administered on 07/25/18at 14:30; Start 07/25/18 at 14:15; Stop 07/25/18 at 14:16; Status DC Info (CONTRAST GIVEN -- Rx MONITORING) 1 each PRN DAILY PRN MC SEE COMMENTS; Start 07/25/18 at 14:15; Stop 07/27/18 at 14:14 Sodium Chloride 500 ml @ 500 mls/hr 1X ONCE IV Last administered on 07/25/18at 15:05; Start 07/25/18 at 14:30; Stop 07/25/18 at 15:29; Status DC Ondansetron HCl (Zofran) 4 mg PRN Q8HRS PRN IV NAUSEA/VOMITING; Start 07/25/18 at 15:45; Stop 07/26/18 at 15:44; Status DC Morphine Sulfate (Morphine Sulfate) 2 mg PRN Q2HR PRN IV PAIN; Start 07/25/18 at 15:45; Stop 07/26/18 at 15:44; Status DC Aspirin (Stephania Aspirin) 325 mg DAILYWBKFT PO Last administered on 07/25/18at 21:37; Start 07/25/18 at 18:30 Carvedilol (Coreg) 6.25 mg BIDWMEALS PO Last administered on 07/25/18at 21:42; Start 07/25/18 at 21:00 Clopidogrel Bisulfate (Plavix) 75 mg DAILY PO ; Start 07/26/18 at 09:00 Tamsulosin HCl (Flomax) 0.4 mg DAILY PO ; Start 07/26/18 at 09:00 Atorvastatin Calcium (Lipitor) 80 mg QHS PO Last administered on 07/25/18at 2 1:37; Start 07/25/18 at 21:00 Pantoprazole Sodium (Protonix) 40 mg DAILYAC PO ; Start 07/26/18 at 07:30 Multivitamins/ Minerals (I-Floresita) 1 tab BID PO Last administered on 07/26/18at 21:00; Start 07/25/18 at 21:00 Insulin Human Lispro (HumaLOG) 0-5 UNITS TIDWMEALHC SQ ; Start 07/25/18 at 21:00; Stop 07/27/18 at 10:17; Status DC Dextrose (Dextrose 50%-Water Syringe) 12.5 gm PRN Q15MIN PRN IV SEE COMMENTS; Start 07/25/18 at 20:45; Stop 07/27/18 at 10:17; Status DC Brimonidine Tartrate (Alphagan) 1 drop DAILY OU Last administered on 07/27/18at 08:43; Start 07/26/18 at 09:00 Dorzolamide HCl (Trusopt) 1 drop BID OU Last administered on 07/27/18at 08:43; Start 07/26/18 at 09:00 Latanoprost (Xalatan) 1 drop QHS OU Last administered on 07/26/18at 21:41; Start 07/26/18 at 21:00 Timolol Maleate (Timoptic 0.5% Ophth) 1 drop DAILY OU Last administered on 07/27/18at 08:43; Start 07/26/18 at 09:00 Cyanocobalamin (Vitamin B-12) 1,000 mcg 1X ONCE IM Last administered on 07/26/18at 16:21; Start 07/26/18 at 11:30; Stop 07/26/18 at 11:31; Status DC Vitamin B Complex (Folbic Tablet) 1 tab DAILY PO ; Start 07/27/18 at 09:00 Thiamine Mononitrate (Vitamin B-1) 100 mg DAILY PO ; Start 07/26/18 at 11:30 Potassium Chloride (Klor-Con) 40 meq 1X ONCE PO ; Start 07/26/18 at 11:30; S top 07/26/18 at 11:31; Status DC Potassium Chloride (Klor-Con) 20 meq DAILYWBKFT PO ; Start 07/27/18 at 08:00 Potassium Chloride/Dextrose/ Sod Cl 1,000 ml @ 100 mls/hr Q10H IV Last administered on 07/27/18at 01:30; Start 07/26/18 at 15:30 Enoxaparin Sodium (Lovenox Per Pharmacy Prophylaxis Dosing) 1 each PRN DAILY PRN MC SEE COMMENTS; Start 07/26/18 at 17:00; Stop 07/26/18 at 17:00; Status DC Enoxaparin Sodium (Lovenox 40mg Syringe) 40 mg Q24H SQ Last administered on 07/26/18at 21:42; Start 07/26/18 at 21:00 Barium Sulfate (Varibar Thin Liquid Apple) 148 gm 1X ONCE PO Last administered on 07/27/18at 11:21; Start 07/27/18 at 10:00; Stop 07/27/18 at 10:01; Status DC Active Scripts Active Reported Latanoprost 2.5 Ml Drops 1 Drop EACHEYE QHS Combigan Eye Drops (Brimonidine Tartrate/Timolol) 5 Ml Drops 5 Ml OP DAILY Azopt (Brinzolamide) 10 Ml Drops.susp 1 Drop EACHEYE BID Magnesium (Magnesium Oxide) 400 Mg Capsule 250 Mg PO DAILY Preservision Areds Softgel (Vit A/Vit C/Vit E/Zinc/Copper) 1 Each Capsule 1 Each PO BID Protonix (Pantoprazole Sodium) 20 Mg Tablet.dr 1 Tab PO DAILY Tamsulosin Hcl 0.4 Mg Cap.er.24h 1 Cap PO DAILY Clopidogrel (Clopidogrel Bisulfate) 75 Mg Tablet 1 Tab PO DAILY Coreg (Carvedilol) 6.25 Mg Tablet 6.25 Mg PO BIDWMEALS Lipitor (Atorvastatin Calcium) 80 Mg Tablet 1 Tab PO DAILY Vitals/I & O Vital Sign - Last 24 Hours 07/26/18 07/26/18 07/26/18 07/26/18 15:03 17:00 19:30 20:00 Temp 98.3 98.7 98.3 98.7 Pulse 69 69 70 Resp 20 16 B/P (MAP) 129/67 (87) 129/67 135/66 (89) Pulse Ox 98 98 O2 Delivery Room Air Room Air Room Air 07/26/18 07/27/18 07/27/18 07/27/18 23:45 03:40 07:15 08:00 Temp 98.1 98.2 97.8 98.1 98.2 97.8 Pulse 68 79 68 Resp 18 16 18 B/P (MAP) 122/63 (82) 132/78 (96) 138/80 (99) Pulse Ox 97 98 98 O2 Delivery Room Air Room Air Room Air Room Air 07/27/18 11:10 Temp 98.8 98.8 Pulse 73 Resp 18 B/P (MAP) 128/77 (94) Pulse Ox 97 O2 Delivery Room Air Intake and Output 07/26/18 07/26/18 07/27/18 14:59 22:59 06:59 Intake Total 0 ml Output Total 200 ml Balance -200 ml 0 ml Nutrition Consultation Dietary Evaluation: Recommendations by RD: PPN/TPN Comments: PPN for short term nutrition dobhoff TF with prolonged NPO status Expected Outcomes/Goals: diet advancement vs need for nutrition support Interpretation of weight loss: >5% in 1 month Malnutrition Findings: Body Fat Depletion (Non Severe: Mild Depletion Weight Status: Underweight JOE GODINEZ MD July 27, 2018 13:08
[2018-07-27 15:20] VITALS: BP 139/74
--- NOTE | 2018-07-27 15:22 | PDOC ---
PROGRESS NOTES Assessment Assessment Confusion. Metabolic encephalopathy. Left side weakness. Generalized weakness, chronic. HTN. HLD. [place] s/p stents. Seizure, ETOH related. Smoking. Former drinker. No evidence of acute CVA this time. RECOMMENDATIONS/PLAN: Plavix 75 mg daily. Continue Lipitor HS. Smoking cessation. Treat medical diseases. EEG on 07/26/18: Encephalopathy. HISTORY OF THE PRESENT ILLNESS: This is a 77-Y-old male who presents to the ER after being found unresponsive by his on the couch. Patient has repetitive questioning during exam and some confusion. Patient states that he got out of bed around 7 or 8:00 this morning and felt different. The probing showed that he felt weak on his left side. Patient states that his knee gave out and that he doesn't really remember much after that point. Had a seizure 20 years ago also had a history of a TIA. PAST MEDICAL HISTORY: Please see above. PAST SURGERY HISTORY: S/P stents. ALLERGY: Prednisone (Verified Allergy, Intermediate, 04/26/18) MEDICATIONS: Refer to [facility] FAMILY HISTORY: Non contributory. SOCIAL HISTORY: Lives at home with his . Denies illicit drug use. He smokes 1.5 pack of cigarettes a day for over 20 years. He drank alcohol in the past but quit for 20 years now. REVIEW OF SYSTEMS: Constitutional: No malnutrition, cachexia. Head: No traumatic brain or head injury. Skin: No edema, or rash. Ear: No infection. Eyes: No vision loss or color blindness. Nose: No bleeding or purulent discharges. Hearing: Hearing decrease. Neck: No injury. Cardiac: [place], CAD, s/p stents, HTN, HLD. Pulmonary: smoking. GI: No GI ulcer, GI bleeding. Urinary/genital: No dysuria, incontinence, urinary retention. Endocrinologic: No cousin face, craniofacial dysmorphism, polydactyly. Skeletomuscular: Generalized weakness. Neurological: see HP. Psychiatric: Denies drug use/abuse. Otherwise, not [id number] review of systems. PHYSICAL EXAMINATION: General appearance is in subacute distress. HEENT: Normocephalic and nontraumatic. Eyes, nose, ears, and throat are unremarkable. Neck is supple. No lymphadenopathy. No crepitus. Cardiovascular: S1, S2, regular rate and rhythm. Pulmonary: Clear to auscultation bilaterally. Abdomen: Bowel sounds are positive. Abdomen is soft, nontender, and nondis tended. Extremities: No rash, lesions, or edema. No restriction of range of motion NEUROLOGICAL EXAMINATION: Awake. Oriented partially to time, knew place and person. PERRL. EOMI. CN: no focal findings. Muscle tone: within normal. Muscle strength: 5 DTR: 2 Plantar reflex: Neutral response bilaterally Gait: not examined in bed. Sensory exam: no abnormal findings. No cerebellar signs elicited. F-T-N test fine. Objective Objective Vital Signs Date Time Temp Pulse Resp B/P (MAP) Pulse Ox O2 Delivery O2 Flow Rate FiO2 07/27/18 11:10 98.8 73 18 128/77 (94) 97 Room Air 98.8 Intake and Output 07/27/18 07:00 Intake Total 0 ml Output Total 200 ml Balance -200 ml Intake Oral 0 ml Output Urine Total 200 ml Vitals Signs Vitals VS - Last 72 Hours, by Label Date Time Temp Pulse Resp B/P (MAP) Pulse Ox O2 Delivery O2 Flow Rate FiO2 07/27/18 11:10 98.8 73 18 128/77 (94) 97 Room Air 98.8 07/27/18 08:00 Room Air 07/27/18 07:15 97.8 68 18 138/80 (99) 98 Room Air 97.8 07/27/18 03:40 98.2 79 16 132/78 (96) 98 Room Air 98.2 07/26/18 23:45 98.1 68 18 122/63 (82) 97 Room Air 98.1 07/26/18 20:00 Room Air 07/26/18 19:30 98.7 70 16 135/66 (89) 98 Room Air 98.7 07/26/18 17:00 69 129/67 07/26/18 15:03 98.3 69 20 129/67 (87) 98 Room Air 98.3 07/26/18 11:04 97.6 67 18 148/68 (94) 99 Room Air 97.6 07/26/18 08:00 Room Air 07/26/18 08:00 67 148/68 07/26/18 07:15 97.3 84 18 145/84 (104) 95 Room Air 97.3 Laboratory Laboratory Laboratory Tests Test 07/26/18 16:54 07/26/18 20:39 07/27/18 07:23 Glucose (Fingerstick) 120 mg/dL (70-99) 106 mg/dL (70-99) 113 mg/dL (70-99) Medication Medications Current Medications Barium Sulfate (Varibar Thin Liquid Apple) 148 gm 1X ONCE PO Last administered on 07/27/18at 11:21; Start 07/27/18 at 10:00; Stop 07/27/18 at 10:01; Status DC Enoxaparin Sodium (Lovenox 40mg Syringe) 40 mg Q24H SQ Last administered on 07/26/18at 21:42; Start 07/26/18 at 21:00 Enoxaparin Sodium (Lovenox Per Pharmacy Prophylaxis Dosing) 1 each PRN DAILY PRN MC SEE COMMENTS; Start 07/26/18 at 17:00; Stop 07/26/18 at 17:00; Status DC Latanoprost (Xalatan) 1 drop QHS OU Last administered on 07/26/18at 21:41; Start 07/26/18 at 21:00 Potassium Chloride/Dextrose/ Sod Cl 1,000 ml @ 100 mls/hr Q10H IV Last administered on 07/27/18at 01:30; Start 07/26/18 at 15:30 Potassium Chloride (Klor-Con) 20 meq DAILYWBKFT PO ; Start 07/27/18 at 08:00 Vitamin B Complex (Folbic Tablet) 1 tab DAILY PO ; Start 07/27/18 at 09:00 Comment Review of Relevant I have reviewed the following items suzanne (where applicable) has been applied. YOLANDA SIMMONS MD July 27, 2018 15:22
[2018-07-27 19:00] VITALS: BP 145/85
[2018-07-27] MEDS: LATANOPROST 0.005% OPHTH SOLUTION 2.5ML BOTTLE. OU SCH (20:50)
[2018-07-27] MEDS: ATORVASTATIN CALCIUM 40 MG TABLET. PO SCH (20:50)
[2018-07-27] MEDS: ENOXAPARIN 40 MG/0.4 ML SYRINGE. SQ SCH (20:51)
[2018-07-27 23:05] VITALS: BP 140/82
[2018-07-28 03:11] VITALS: BP 196/104
[2018-07-28 03:19] VITALS: BP 135/71
[2018-07-28] MEDS: POTASSIUM CL 20MEQ D5-0.45NACL 1,000 ML IV SCH (05:45)
[2018-07-28 07:00] VITALS: BP 185/93
[2018-07-28] MEDS: CARVEDILOL 6.25 MG TABLET. PO SCH (08:40)
[2018-07-28] MEDS: ASPIRIN 325 MG TABLET PO SCH (08:41)
[2018-07-28] MEDS: PANTOPRAZOLE 40 MG TABLET.DR. PO SCH (08:41)
[2018-07-28] MEDS: POTASSIUM CHLORIDE 20 MEQ TABLET.ER. PO SCH (08:41)
[2018-07-28] MEDS: CLOPIDOGREL BISULFATE 75 MG TABLET PO SCH (08:42)
[2018-07-28] MEDS: TAMSULOSIN 0.4 MG CAP.ER.24H. PO SCH (08:42)
[2018-07-28] MEDS: THIAMINE 100 MG TABLET. PO SCH (08:42)
[2018-07-28] MEDS: VITAMIN B12,B9,B6 COMPLEX 1 TABLET. PO SCH (08:42)
[2018-07-28] MEDS: BRIMONIDINE 0.2% OPHTH SOLUTION 5ML BOTTLE. OU SCH (08:44)
[2018-07-28] MEDS: TIMOLOL 0.5% OPHTH SOLUTION 5ML BOTTLE. OU SCH (08:44)
[2018-07-28] MEDS: DORZOLAMIDE 2% OPHTH SOLUTION 10ML BOTTLE. OU SCH (08:45)
[2018-07-28] MEDS: MULTIVITAMIN I-VITE TABLET. PO SCH (10:32)
[2018-07-28 11:00] VITALS: BP 147/87
[2018-07-28] MEDS ORDERED: CYAN10005 PO (14:13)
[2018-07-28 15:00] VITALS: BP 151/88
--- NOTE | 2018-07-28 15:39 | PDOC ---
PROGRESS NOTES Assessment Assessment Confusion. Metabolic encephalopathy. Left side weakness, not evident then. Generalized weakness, chronic. HTN. HLD. [place] s/p stents. Seizure, ETOH related. Smoking. Former drinker. No evidence of acute CVA this time. RECOMMENDATIONS/PLAN: Plavix 75 mg daily. Continue Lipitor HS. Smoking cessation. Treat medical diseases. EEG on 07/26/18: Encephalopathy. HISTORY OF THE PRESENT ILLNESS: This is a 77-Y-old male who presents to the ER after being found unresponsive by his on the couch. Patient has repetitive questioning during exam and some confusion. Patient states that he got out of bed around 7 or 8:00 this morning and felt different. The probing showed that he felt weak on his left side. Patient states that his knee gave out and that he doesn't really remember much after that point. Had a seizure 20 years ago also had a history of a TIA. PAST MEDICAL HISTORY: Please see above. PAST SURGERY HISTORY: S/P stents. ALLERGY: Prednisone (Verified Allergy, Intermediate, 04/26/18) MEDICATIONS: Refer to [facility] HISTORY: Non contributory. SOCIAL HISTORY: Lives at home with his . Denies illicit drug use. He smokes 1.5 pack of cigarettes a day for over 20 years. He drank alcohol in the past but quit for 20 years now. REVIEW OF SYSTEMS: Constitutional: No malnutrition, cachexia. Head: No traumatic brain or head injury. Skin: No edema, or rash. Ear: No infection. Eyes: No vision loss or color blindness. Nose: No bleeding or purulent discharges. Hearing: Hearing decrease. Neck: No injury. Cardiac: [place], CAD, s/p stents, HTN, HLD. Pulmonary: smoking. GI: No GI ulcer, GI bleeding. Urinary/genital: No dysuria, incontinence, urinary retention. Endocrinologic: No cousin face, craniofacial dysmorphism, polydactyly. Skeletomuscular: Generalized weakness. Neurological: see HP. Psychiatric: Denies drug use/abuse. Otherwise, not [id number] review of systems. PHYSICAL EXAMINATION: General appearance is in no acute distress. HEENT: Normocephalic and nontraumatic. Eyes, nose, ears, and throat are unremarkable. Neck is supple. No lymphadenopathy. No crepitus. Cardiovascular: S1, S2, regular rate and rhythm. Pulmonary: Clear to auscultation bilaterally. Abdomen: Bowel sounds are positive. Abdomen is soft, nontender, and nondistended. Extremities: No rash, lesions, or edema. No restriction of range of motion NEUROLOGICAL EXAMINATION: Awake. Oriented to time, place and person. PERRL. EOMI. CN: no focal findings. Muscle tone: within normal. Muscle strength: 5 DTR: 2 Plantar reflex: Neutral response bilaterally Gait: at his baseline normal. Sensory exam: no abnormal findings. No cerebellar signs elicited. F-T-N test fine. Objective Objective Vital Signs Date Time Temp Pulse Resp B/P (MAP) Pulse Ox O2 Delivery O2 Flow Rate FiO2 07/28/18 15:00 97.5 81 18 151/88 (109) 97 Room Air 97.5 Vitals Signs Vitals VS - Last 72 Hours, by Label Date Time Temp Pulse Resp B/P (MAP) Pulse Ox O2 Delivery O2 Flow Rate FiO2 07/28/18 15:00 97.5 81 18 151/88 (109) 97 Room Air 97.5 07/28/18 11:00 97.5 75 18 147/87 (107) 97 Room Air 97.5 07/28/18 08:40 92 185/93 07/28/18 08:00 Room Air 07/28/18 07:00 97.3 92 18 185/93 (123) 98 Room Air 97.3 07/28/18 03:19 96.8 98 135/71 (92) 99 Room Air 96.8 07/28/18 03:11 96.8 98 20 196/104 (134) 99 Room Air 96.8 07/27/18 23:05 97.8 72 20 140/82 (101) 99 Room Air 97.8 07/27/18 20:00 Room Air 07/27/18 19:00 97.6 81 20 145/85 (105) 99 Room Air 97.6 07/27/18 15:20 98.1 79 20 139/74 (95) 96 Room Air 98.1 07/27/18 11:10 98.8 73 18 128/77 (94) 97 Room Air 98.8 07/27/18 08:00 Room Air 07/27/18 07:15 97.8 68 18 138/80 (99) 98 Room Air 97.8 Comment Review of Relevant I have reviewed the following items suzanne (where applicable) has been applied. YOLANDA SIMMONS MD July 28, 2018 15:39
--- NOTE | 2018-07-28 16:25 | PDOC3 ---
Discharge Summary Visit Information Date of Admission: July 25, 2018 Date of Discharge: July 28, 2018 Admitting Diagnosis: TIA Final Diagnosis Problems Medical Problems: (1) Transient ischemic attack (TIA) Status: Acute Brief Hospital Course Allergies Allergies Coded Allergies Type Severity Reaction Last Updated Verified prednisone Allergy Intermediate 04/26/18 Yes Vital Signs Vital Signs Date Time Temp Pulse Resp B/P (MAP) Pulse Ox O2 Delivery O2 Flow Rate FiO2 07/28/18 15:00 97.5 81 18 151/88 (109) 97 Room Air 97.5 PHYSICAL EXAMINATION: General appearance is in no acute distress. HEENT: Normocephalic and nontraumatic. Eyes, nose, ears, and throat are unremarkable. Neck is supple. No lymphadenopathy. No crepitus. Cardiovascular: S1, S2, regular rate and rhythm. Pulmonary: Clear to auscultation bilaterally. Abdomen: Bowel sounds are positive. Abdomen is soft, nontender, and nondistended. Extremities: No rash, lesions, or edema. No restriction of range of motion NEUROLOGICAL EXAMINATION: Awake. Oriented to time, place and person. PERRL. EOMI. CN: no focal findings. Muscle tone: within normal. Muscle strength: 5 DTR: 2 Plantar reflex: Neutral response bilaterally Gait: at his baseline normal. Sensory exam: no abnormal findings. No cerebellar signs elicited. F-T-N test fine. Lab Results Laboratory Tests Test 07/26/18 16:54 07/26/18 20:39 07/27/18 07:23 Glucose (Fingerstick) 120 mg/dL (70-99) 106 mg/dL (70-99) 113 mg/dL (70-99) MRI head Impression: 1. There is no evidence of recent infarct or intracranial mass effect. Scattered overall mild T2 and FLAIR hyperintense signal abnormality of the supratentorial parenchyma bilaterally is nonspecific, more commonly due to chronic microvascular ischemic disease in a patient this age. 2. There is paranasal sinus mucosal thickening as stated. Electronically signed by: Jaxson Hidalgo MD (07/26/2018 10:35 AM) [id number] Brief Hospital Course Patient is a 77 year old male w/ PMHx Anxiety, Glaucoma, High Cholesterol, Hypertension, [place] s/p NIGEL, smoker, ex alcoholic, alcohol related seizure who presents to the ER after being found unresponsive by his on the couch. Patient has repetitive questioning during exam and some confusion. Patient states that he got out of bed around 7 or 8:00 this morning and felt different. He felt weak on his left side, notes his left foot feels weak. Had a seizure 20 years ago related to ETOH withdrawal also had a history of a TIA. He notes to me on examination he is scared he had a stroke and notes he is a DNR. Patient seen in consultation by Neurology with the following recommendations: Reason for Consult: IMPRESSION: Confusion. MS changes. Left side weakness. Generalized weakness, chronic. HTN. HLD. [place] s/p stents. Seizure, ETOH related. Smoking. Former drinker. RECOMMENDATIONS/PLAN: [id number] mg daily. Lab: see orders. Brain MRI w/o contrast. Smoking cessation. Treat medical diseases. HISTORY OF THE PRESENT ILLNESS: This is a 77-Y-old male who presents to the ER after being found unresponsive by his on the couch. Patient has repetitive questioning during exam and some confusion. Patient states that he got out of bed around 7 or 8:00 this morning and felt different. The probing showed that he felt weak on his left side. Patient states that his knee gave out and that he doesn't really remember much after that point. Had a seizure 20 years ago also had a history of a TIA. Patient also underwent a speech evaluation and there were no changes to his diet. No evidence of aspiration was reported. The patient underwent NEG as part of his evaluation by neurology with reports of encephalopathy as per [employer] consultant. The patient recover from this and I am most likely her current admission is somewhat impaired due to B12 levels being on the low side. The patient received an injection here in the inpatient setting and I have provided him with poor oral supplementation of the environment. I have strongly advised to follow up with the primary care physician and noted to restore his B12 most likely he will require injections on a weekly basis. CONCERNS WERE ADDRESSED THE BEST OF MY ABILITIES WITH THE PRIOR TO DISMISSAL OVER THE PHONE. REASSURANCE HAS BEEN PROVIDED GIVEN THE NEGATIVE RESULTS OF HIS WORKUP HE WAS DEEMED APPROPRIATE FOR DISCHARGE ON TODAY'S DATE Discharge Information Condition at Discharge: Improved Follow Up: Weeks (primary care physician) Disposition/Orders: D/C to Home Scheduled Atorvastatin Calcium (Lipitor) 80 Mg Tablet, 1 TAB PO DAILY for cholestrrol, #30 Ref 5 (Reported) Entered as Reported by: NOEL BAIN on 04/26/181047 Last Action: Converted on 07/25/182039 by NAHEED AMBROCIO MD Brimonidine Tartrate/Timolol (Combigan Eye Drops) 5 Ml Drops, 5 ML OP DAILY for glaucoma, (Reported) Entered as Reported by: Christy Roldan on 07/26/1822 Last Action: Converted on 07/26/18630 by Christy Roldan Brinzolamide (Azopt) 10 Ml Drops.susp, 1 DROP EACHEYE BID for glaucoma, #15 Ref 3 (Reported) Entered as Reported by: Christy Roldan on 07/26/1822 Last Action: Converted on 07/26/18630 by Christy Roldan Carvedilol (Coreg ) 6.25 Mg Tablet, 6.25 MG PO BIDWMEALS for CARDIAC, (Reported) Entered as Reported by: NOEL BAIN on 04/26/181047 Last Action: Continued on 07/25/182038 by NAHEED AMBROCIO MD Clopidogrel Bisulfate (Clopidogrel) 75 Mg Tablet, 1 TAB PO DAILY for platlets, #90 Ref 1 (Reported) Entered as Reported by: NOEL BAIN on 04/26/181047 Last Action: Continued on 07/25/182038 by NAHEED AMBROCIO MD Cyanocobalamin (Vitamin B-12) (Vitamin B-12) 1,000 Mcg Tablet, 1 TAB PO DAILY for supplement, #30 Ref 11 Prescribed by: JOE GODINEZ MD on 07/28/18 1413 Latanoprost (Latanoprost) 2.5 Ml Drops, 1 DROP EACHEYE QHS for glaucoma, #7.5 Ref 3 (Reported) Entered as Reported by: Christy Roldan on 07/26/1822 Last Action: Converted on 07/26/18630 by Christy Roldan Magnesium Oxide (Magnesium) 400 Mg Capsule, 250 MG PO DAILY for supplement, (Reported) Entered as Reported by: Christy Roldan on 07/26/1822 Last Action: New Order on 07/26/1822 by Christy Roldan Pantoprazole Sodium (Protonix) 20 Mg Tablet.dr, 1 TAB PO DAILY for gerd, #30 (Reported) Entered as Reported by: NOEL BAIN on 04/26/181047 Last Action: Converted on 07/25/182039 by NAHEED AMBROCIO MD Tamsulosin Hcl (Tamsulosin Hcl) 0.4 Mg Cap.er.24h, 1 CAP PO DAILY for incontinrnce, #30 Ref 5 (Reported) Entered as Reported by: NOEL BAIN on 04/26/181047 Last Action: Continued on 07/25/182038 by NAHEED AMBROCIO MD Vit A/Vit C/Vit E/Zinc/Copper (Preservision Areds Softgel) 1 Each Capsule, 1 EACH PO BID for glaucoma, (Reported) Entered as Reported by: NOEL BAIN on 04/26/181047 Last Action: Converted on 07/25/182039 by MD GRETCHEN BUCHANAN HECTOR M MD July 28, 2018 16:25
== END 2018-07-28 15:15 | disposition home or self-care (01) | DRG 71 ==
LOC: ER 13:11 → 6 SOUTH 15:45
PROVIDERS: ADMIT Internal Medicine; ATTEND Internal Medicine
DX: G93.41 Metabolic encephalopathy (principal); E44.0 Moderate protein-calorie malnutrition; E53.8 Deficiency of other specified B group vitamins; R56.9 Unspecified convulsions; I10 Essential (primary) hypertension; F41.9 Anxiety disorder, unspecified; H40.9 Unspecified glaucoma; F17.210 Nicotine dependence, cigarettes, uncomplicated; E78.00 Pure hypercholesterolemia, unspecified; Z66 Do not resuscitate; I25.10 Atherosclerotic heart disease of native coronary artery without angina pectoris; E78.5 Hyperlipidemia, unspecified; G35 Multiple sclerosis; J43.9 Emphysema, unspecified; I25.2 Old myocardial infarction; Z95.5 Presence of coronary angioplasty implant and graft; Z86.73 Personal history of transient ischemic attack (TIA), and cerebral infarction without residual deficits; Z88.8 Allergy status to other drugs, medicaments and biological substances; Z79.02 Long term (current) use of antithrombotics/antiplatelets; Z82.49 Family history of ischemic heart disease and other diseases of the circulatory system; Z84.89 Family history of other specified conditions
CPT/HCPCS: 36415; 70450; 70496; 70498; 70551; 71045; 74230; 80048; 80053; 80061; 82607; 82962; 84443; 84484; 85025; 85610; 85730; 93005; 95816; 96372; G0480; J1650; J1815; J3420; J7040; Q9967; 92526; 92610; 92611; 97110; 97530; 97535; 99285-25

== ENCOUNTER 2019-05-25 15:40 | Inpatient (IN) | payer OTHER ==
[~2019-05-25] VITALS: Ht 165.1 cm; Wt 47.6 kg
[~2019-05-25 15:40] MED LIST changes: +AMIT10TA PO; +BRIM5DRO2 LEFTEYE; +BRIM5DRO2 OP; +BRIN10DR EACHEYE; +BRIN10DR OP; +CARV6.2511 PO; +CLON0.5T PO; +CLON1TAB PO; +CYAN-25 PO; +DONE10TA61 PO; +DULO30CA2 PO; +LATA2.5D3 EACHEYE; +MAGN400C PO; +MEMA10TA PO; +METO-239 PO; +MILN50TA PO; +OLAN2.5T3 PO; +OXYC5CAP PO; +OXYC5TAB4 PO; +PANT40TA77 PO; +Pantoprazole PO; +QUET25TA5 PO; +TRAM50TA PO; +VIT1CAPS17 PO
[2019-05-25] MEDS ORDERED: ONDANSETRON ODT 4 MG TAB.RAPDIS. PO PRN (15:45)
[2019-05-25] MEDS ORDERED: BISACODYL 10 MG SUPP.RECT. PR PRN (15:45)
[2019-05-25] MEDS ORDERED: ACETAMINOPHEN 650 MG SUPP.RECT. PR PRN (15:45)
[2019-05-25] MEDS: SCOPOLAMINE 1.5MG PATCH. TD SCH (17:07)
[2019-05-25] MEDS: MORPHINE SULFATE 2 MG/ML VIAL. IV PRN ×3 (17:10→22:05)
[2019-05-25 19:10] VITALS: BP 136/68
[2019-05-25] MEDS: HALOPERIDOL 2 MG/ML ORAL.CONC. PO PRN (22:05)
[2019-05-25 22:58] VITALS: BP 152/87
[2019-05-26] MEDS: HALOPERIDOL 2 MG/ML ORAL.CONC. PO PRN ×4 (01:13→19:37)
[2019-05-26] MEDS: MORPHINE SULFATE 2 MG/ML VIAL. IV PRN ×7 (01:13→23:11)
[2019-05-26 07:00] VITALS: BP 176/85
--- NOTE | 2019-05-26 09:36 | PDOC ---
PROGRESS NOTES Chief Complaint Chief Complaint now on hospice Acute traumatic fracture of the proximal left femur with significant distraction. chronic wernickle encephalopathy EtOH abuse and withdrawl DIOGO - on admit Transaminitis - ETOH abuse Hyponatremia - hypovolemic Right side weakness - TIA as he is improving, ASA, statin. Generalized weakness, chronic - progressive. l Unintentional weight loss - patient notes 20# weight loss HTN -will cont meds HLD - needs high intensity statin with CVA sx [place] s/p stents - monitor hx Seizure, ETOH related - Smoking - counseled on cessation, History of Present Illness History of Present Illness on hospice care, inpatient, is now eating a bit better and is more mobile, cont current Vitals Vitals Vital Signs Date Time Temp Pulse Resp B/P (MAP) Pulse Ox O2 Delivery O2 Flow Rate FiO2 05/26/19 08:00 Room Air 05/26/19 07:00 97.7 91 18 176/85 (115) 98 97.7 Physical Exam General: Alert, Cooperative, No acute distress Heart: Regular rate, No murmurs Lungs: Wheezing, Crackles Comment Review of Relevant I have reviewed the following items suzanne (where applicable) has been applied. Medications Current Medications Morphine Sulfate (Morphine Sulfate) 2 mg PRN Q1HR PRN IV SOA/PAIN Last administered on 05/26/19at 05:16; Start 05/25/19 at 15:45 Bisacodyl (Dulcolax Supp) 10 mg PRN DAILY PRN [place] CONSTIPATION; Start 05/25/19 at 15:45 Acetaminophen (Tylenol Supp) 650 mg PRN Q4HRS PRN [place] MILD PAIN / TEMP; Start 05/25/19 at 15:45 Ondansetron HCl (Zofran Odt) 8 mg PRN Q6HRS PRN PO NAUSEA/VOMITING; Start 05/25/19 at 15:45 Scopolamine (Transderm-Scop) 1 patch Q3DAYS TD Last administered on 05/25/19at 17:07; Start 05/25/19 at 16:30 Haloperidol Lactate (HALDOL 2mg ORAL CONC) 2 mg PRN Q2HRS PRN PO AGITATION Last administered on 05/26/19at 05:16; Start 05/25/19 at 15:45 Active Scripts Active Tramadol Hcl 50 Mg Tablet 50 Mg PO PRN Q6HRS PRN Klonopin (Clonazepam) 0.5 Mg Tablet 1 Tab PO BID PRN Vitamin B-12 (Cyanocobalamin (Vitamin B-12)) 1,000 Mcg Tablet 1 Tab PO DAILY [Pantoprazole] 40 MG Tablet. 40 Mg PO BIDWMEALS 30 Days Reported Oxycodone Hcl 5 Mg Capsule 5 Mg PO BID Savella (Milnacipran Hcl) 50 Mg Tablet 1 Tab PO BID Aricept (Donepezil Hcl) 10 Mg Tablet 1 Tab PO DAILY 30 Days Protonix (Pantoprazole Sodium) 40 Mg Tablet. 40 Mg PO DAILYAC Namenda (Memantine Hcl) 10 Mg Tablet 10 Mg PO DAILY Latanoprost 2.5 Ml Drops 1 Drop EACHEYE QHS Combigan Eye Drops (Brimonidine Tartrate/Timolol) 5 Ml Drops 5 Ml OP DAILY Azopt (Brinzolamide) 10 Ml Drops.susp 1 Drop EACHEYE BID Magnesium (Magnesium Oxide) 400 Mg Capsule 250 Mg PO DAILY Preservision Areds Softgel (Vit A/Vit C/Vit E/Zinc/Copper) 1 Each Capsule 1 Each PO BID Tamsulosin Hcl 0.4 Mg Cap.er.24h 1 Cap PO DAILY Clopidogrel (Clopidogrel Bisulfate) 75 Mg Tablet 1 Tab PO DAILY Coreg (Carvedilol) 6.25 Mg Tablet 6.25 Mg PO BIDWMEALS Lipitor (Atorvastatin Calcium) 80 Mg Tablet 1 Tab PO DAILY Combigan Eye Drops (Brimonidine Tartrate/Timolol) 5 Ml Drops 1 Drop LEFTEYE BID Zyprexa (Olanzapine) 2.5 Mg Tablet 1 Tab PO QHS Seroquel (Quetiapine Fumarate) 25 Mg Tablet 1.5 Tab PO BID Cymbalta (Duloxetine Hcl) 30 Mg Capsule. 3 Cap PO DAILY Amitriptyline Hcl 10 Mg Tablet 2 Tab PO QHS Vitals/I & O Vital Sign - Last 24 Hours 05/25/19 05/25/19 05/25/19 05/25/19 17:10 18:17 19:10 20:17 Temp 97.5 97.5 Pulse 103 Resp 18 18 B/P (MAP) 136/68 (90) Pulse Ox 95 95 O2 Delivery Room Air Room Air Room Air Room Air 3/12/20 3/12/20 3/12/20 3/12/20 20:20 20:53 22:05 22:53 Resp 18 18 18 Pulse Ox 95 95 95 O2 Delivery Room Air Room Air Room Air Room Air 05/25/19 05/26/19 05/26/19 05/26/19 22:58 01:13 01:55 05:16 Temp 97.7 97.7 Pulse 86 Resp 18 18 17 18 B/P (MAP) 152/87 (108) Pulse Ox 94 94 94 94 O2 Delivery Room Air Room Air Room Air Room Air 05/26/19 05/26/19 05/26/19 05:59 07:00 08:00 Temp 97.7 97.7 Pulse 91 Resp 18 18 B/P (MAP) 176/85 (115) Pulse Ox 94 98 O2 Delivery Room Air Room Air Room Air Intake and Output 05/25/19 05/25/19 05/26/19 15:00 23:00 07:00 Intake Total 960 ml 360 ml Output Total 950 ml Balance 10 ml 360 ml CARROLL MCMANUS MD May 26, 2019 09:36
[2019-05-26 19:00] VITALS: BP 144/83
[2019-05-26 23:00] VITALS: BP 129/80
[2019-05-27] MEDS: MORPHINE SULFATE 2 MG/ML VIAL. IV PRN ×13 (03:40→22:59)
[2019-05-27 07:59] VITALS: BP 139/77
--- NOTE | 2019-05-27 14:13 | PDOC ---
PROGRESS NOTES Chief Complaint Chief Complaint now on hospice Acute traumatic fracture of the proximal left femur with significant distraction. chronic wernickle encephalopathy EtOH abuse and withdrawl DIGOO - on admit Transaminitis - ETOH abuse Hyponatremia - hypovolemic Right side weakness - TIA as he is improving, ASA, statin. Generalized weakness, chronic - progressive. l Unintentional weight loss - patient notes 20# weight loss HTN -will cont meds HLD - needs high intensity statin with CVA sx [place] s/p stents - monitor hx Seizure, ETOH related - Smoking - counseled on cessation, History of Present Illness History of Present Illness on hospice care, inpatient, but now is getting better daily is now eating a bit better and is more mobile, cont current will probably need to transition to a care facility on wednesday Vitals Vitals Vital Signs Date Time Temp Pulse Resp B/P (MAP) Pulse Ox O2 Delivery O2 Flow Rate FiO2 05/27/19 14:10 98 Room Air 05/27/19 07:59 97.6 73 20 139/77 (97) 97.6 Physical Exam General: Alert, Cooperative, No acute distress Heart: Regular rate, No murmurs Lungs: Wheezing, Crackles Comment Review of Relevant I have reviewed the following items suzanne (where applicable) has been applied. Medications Current Medications Morphine Sulfate (Morphine Sulfate) 2 mg PRN Q1HR PRN IV SOA/PAIN Last administered on 05/27/19at 13:39; Start 05/25/19 at 15:45 Bisacodyl (Dulcolax Supp) 10 mg PRN DAILY PRN [place] CONSTIPATION; Start 05/25/19 at 15:45 Acetaminophen (Tylenol Supp) 650 mg PRN Q4HRS PRN [place] MILD PAIN / TEMP; Start 05/25/19 at 15:45 Ondansetron HCl (Zofran Odt) 8 mg PRN Q6HRS PRN PO NAUSEA/VOMITING; Start 05/25/19 at 15:45 Scopolamine (Transderm-Scop) 1 patch Q3DAYS TD Last administered on 05/25/19at 17:07; Start 05/25/19 at 16:30 Haloperidol Lactate (HALDOL 2mg ORAL CONC) 2 mg PRN Q2HRS PRN PO AGITATION Last administered on 05/26/19at 19:37; Start 05/25/19 at 15:45 Active Scripts Active Tramadol Hcl 50 Mg Tablet 50 Mg PO PRN Q6HRS PRN Klonopin (Clonazepam) 0.5 Mg Tablet 1 Tab PO BID PRN Vitamin B-12 (Cyanocobalamin (Vitamin B-12)) 1,000 Mcg Tablet 1 Tab PO DAILY [Pantoprazole] 40 MG Tablet. 40 Mg PO BIDWMEALS 30 Days Reported Oxycodone Hcl 5 Mg Capsule 5 Mg PO BID Savella (Milnacipran Hcl) 50 Mg Tablet 1 Tab PO BID Aricept (Donepezil Hcl) 10 Mg Tablet 1 Tab PO DAILY 30 Days Protonix (Pantoprazole Sodium) 40 Mg Tablet. 40 Mg PO DAILYAC Namenda (Memantine Hcl) 10 Mg Tablet 10 Mg PO DAILY Latanoprost 2.5 Ml Drops 1 Drop EACHEYE QHS Combigan Eye Drops (Brimonidine Tartrate/Timolol) 5 Ml Drops 5 Ml OP DAILY Azopt (Brinzolamide) 10 Ml Drops.susp 1 Drop EACHEYE BID Magnesium (Magnesium Oxide) 400 Mg Capsule 250 Mg PO DAILY Preservision Areds Softgel (Vit A/Vit C/Vit E/Zinc/Copper) 1 Each Capsule 1 Each PO BID Tamsulosin Hcl 0.4 Mg Cap.er.24h 1 Cap PO DAILY Clopidogrel (Clopidogrel Bisulfate) 75 Mg Tablet 1 Tab PO DAILY Coreg (Carvedilol) 6.25 Mg Tablet 6.25 Mg PO BIDWMEALS Lipitor (Atorvastatin Calcium) 80 Mg Tablet 1 Tab PO DAILY Combigan Eye Drops (Brimonidine Tartrate/Timolol) 5 Ml Drops 1 Drop LEFTEYE BID Zyprexa (Olanzapine) 2.5 Mg Tablet 1 Tab PO QHS Seroquel (Quetiapine Fumarate) 25 Mg Tablet 1.5 Tab PO BID Cymbalta (Duloxetine Hcl) 30 Mg Capsule. 3 Cap PO DAILY Amitriptyline Hcl 10 Mg Tablet 2 Tab PO QHS Vitals/I & O Vital Sign - Last 24 Hours 05/26/19 05/26/19 05/26/19 05/26/19 14:22 15:30 19:00 19:37 Temp 97.9 97.9 Pulse 88 Resp 18 20 B/P (MAP) 144/83 (103) Pulse Ox 98 98 O2 Delivery Room Air Room Air Room Air Room Air 305/26/19 05/26/19 05/26/19 20:00 20:07 20:45 21:15 Resp 20 18 20 Pulse Ox 98 98 98 O2 Delivery Room Air Room Air Room Air Room Air 05/26/19 05/26/19 05/26/19 05/27/19 23:00 23:11 23:41 03:40 Temp 98.6 98.6 Pulse 90 Resp 18 18 18 B/P (MAP) 129/80 (96) Pulse Ox 97 98 98 O2 Delivery Room Air Room Air Room Air Room Air 05/27/19 05/27/19 05/27/19 05/27/19 04:10 07:00 07:30 07:30 Pulse Ox 98 98 98 O2 Delivery Room Air Room Air Room Air Room Air 05/27/19 05/27/19 05/27/19 05/27/19 07:59 08:00 08:30 10:00 Temp 97.6 97.6 Pulse 73 Resp 20 B/P (MAP) 139/77 (97) Pulse Ox 97 98 98 98 O2 Delivery Room Air Room Air Room Air Room Air 05/27/19 05/27/19 05/27/19 05/27/19 11:56 11:59 12:08 13:39 Pulse Ox 98 O2 Delivery Room Air Room Air Room Air Room Air 05/27/19 14:10 Pulse Ox 98 O2 Delivery Room Air Intake and Output 05/26/19 05/26/19 05/27/19 15:00 23:00 07:00 Intake Total 520 ml 380 ml 200 ml Output Total 325 ml Balance 520 ml 55 ml 200 ml CARROLL MCMANUS MD May 27, 2019 14:13
[2019-05-27 19:00] VITALS: BP 150/88
[2019-05-27] MEDS: HALOPERIDOL 2 MG/ML ORAL.CONC. PO PRN (20:15)
[2019-05-28] MEDS: MORPHINE SULFATE 2 MG/ML VIAL. IV PRN ×7 (00:38→19:25)
[2019-05-28] MEDS: HALOPERIDOL 2 MG/ML ORAL.CONC. PO PRN ×6 (03:09→21:19)
[2019-05-28 07:00] VITALS: BP 159/81
[2019-05-28] MEDS: SCOPOLAMINE 1.5MG PATCH. TD SCH (09:12)
--- NOTE | 2019-05-28 10:18 | PDOC ---
PROGRESS NOTES Chief Complaint Chief Complaint now on hospice Acute traumatic fracture of the proximal left femur with significant distraction. chronic wernickle encephalopathy EtOH abuse and withdrawl DIOGO - on admit Transaminitis - ETOH abuse Hyponatremia - hypovolemic Right side weakness - TIA as he is improving, ASA, statin. Generalized weakness, chronic - progressive. l Unintentional weight loss - patient notes 20# weight loss HTN -will cont meds HLD - needs high intensity statin with CVA sx [place] s/p stents - monitor hx Seizure, ETOH related - Smoking - counseled on cessation, History of Present Illness History of Present Illness Patient complaining of pain. No new complaints, reassurance provided Vitals Vitals Vital Signs Date Time Temp Pulse Resp B/P (MAP) Pulse Ox O2 Delivery O2 Flow Rate FiO2 05/28/19 08:00 Room Air 05/28/19 07:30 16 05/28/19 07:00 97.5 112 159/81 (107) 86 97.5 Physical Exam General: Alert, Cooperative, mild distress Heart: Regular rate, No murmurs Lungs: Wheezing, Crackles Abdomen: Normal bowel sounds, Soft Comment Review of Relevant I have reviewed the following items suzanne (where applicable) has been applied. Medications Current Medications Morphine Sulfate (Morphine Sulfate) 2 mg PRN Q1HR PRN IV SOA/PAIN Last administered on 05/28/19at 07:00; Start 05/25/19 at 15:45 Bisacodyl (Dulcolax Supp) 10 mg PRN DAILY PRN [place] CONSTIPATION; Start 05/25/19 at 15:45 Acetaminophen (Tylenol Supp) 650 mg PRN Q4HRS PRN [place] MILD PAIN / TEMP; Start 05/25/19 at 15:45 Ondansetron HCl (Zofran Odt) 8 mg PRN Q6HRS PRN PO NAUSEA/VOMITING; Start 05/25/19 at 15:45 Scopolamine (Transderm-Scop) 1 patch Q3DAYS TD Last administered on 05/28/19at 09:12; Start 05/25/19 at 16:30 Haloperidol Lactate (HALDOL 2mg ORAL CONC) 2 mg PRN Q2HRS PRN PO AGITATION Last administered on 05/28/19at 05:11; Start 05/25/19 at 15:45 Active Scripts Active Tramadol Hcl 50 Mg Tablet 50 Mg PO PRN Q6HRS PRN Klonopin (Clonazepam) 0.5 Mg Tablet 1 Tab PO BID PRN Vitamin B-12 (Cyanocobalamin (Vitamin B-12)) 1,000 Mcg Tablet 1 Tab PO DAILY [Pantoprazole] 40 MG Tablet. 40 Mg PO BIDWMEALS 30 Days Reported Oxycodone Hcl 5 Mg Capsule 5 Mg PO BID Savella (Milnacipran Hcl) 50 Mg Tablet 1 Tab PO BID Aricept (Donepezil Hcl) 10 Mg Tablet 1 Tab PO DAILY 30 Days Protonix (Pantoprazole Sodium) 40 Mg Tablet. 40 Mg PO DAILYAC Namenda (Memantine Hcl) 10 Mg Tablet 10 Mg PO DAILY Latanoprost 2.5 Ml Drops 1 Drop EACHEYE QHS Combigan Eye Drops (Brimonidine Tartrate/Timolol) 5 Ml Drops 5 Ml OP DAILY Azopt (Brinzolamide) 10 Ml Drops.susp 1 Drop EACHEYE BID Magnesium (Magnesium Oxide) 400 Mg Capsule 250 Mg PO DAILY Preservision Areds Softgel (Vit A/Vit C/Vit E/Zinc/Copper) 1 Each Capsule 1 Each PO BID Tamsulosin Hcl 0.4 Mg Cap.er.24h 1 Cap PO DAILY Clopidogrel (Clopidogrel Bisulfate) 75 Mg Tablet 1 Tab PO DAILY Coreg (Carvedilol) 6.25 Mg Tablet 6.25 Mg PO BIDWMEALS Lipitor (Atorvastatin Calcium) 80 Mg Tablet 1 Tab PO DAILY Combigan Eye Drops (Brimonidine Tartrate/Timolol) 5 Ml Drops 1 Drop LEFTEYE BID Zyprexa (Olanzapine) 2.5 Mg Tablet 1 Tab PO QHS Seroquel (Quetiapine Fumarate) 25 Mg Tablet 1.5 Tab PO BID Cymbalta (Duloxetine Hcl) 30 Mg Capsule. 3 Cap PO DAILY Amitriptyline Hcl 10 Mg Tablet 2 Tab PO QHS Vitals/I & O Vital Sign - Last 24 Hours 05/27/19 05/27/19 05/27/19 05/27/19 11:56 11:59 12:08 13:39 Pulse Ox 98 O2 Delivery Room Air Room Air Room Air Room Air 05/27/19 05/27/19 05/27/19 05/27/19 14:10 15:19 16:27 17:05 Pulse Ox 98 98 O2 Delivery Room Air Room Air Room Air Room Air 05/27/19 05/27/19 05/27/19 05/27/19 18:15 18:17 19:00 19:11 Temp 97.8 97.8 Pulse 93 Resp 16 B/P (MAP) 150/88 (108) Pulse Ox 95 O2 Delivery Room Air Room Air Room Air Room Air 05/27/19 05/27/19 05/27/19 05/27/19 19:15 19:45 20:00 20:15 Resp 20 20 20 Pulse Ox 95 95 95 O2 Delivery Room Air Room Air Room Air Room Air 05/27/19 05/27/19 05/27/19 05/27/19 20:45 21:17 21:47 22:59 Resp 18 20 18 18 Pulse Ox 95 95 95 95 O2 Delivery Room Air Room Air Room Air Room Air 05/27/19 05/28/19 05/28/19 05/28/19 23:29 00:38 01:08 03:02 Resp 18 20 20 18 Pulse Ox 95 95 95 95 O2 Delivery Room Air Room Air Room Air Room Air 05/28/19 05/28/19 05/28/19 05/28/19 03:32 05:11 05:41 07:00 Resp 18 18 18 20 Pulse Ox 95 95 95 95 O2 Delivery Room Air Room Air Room Air Room Air 05/28/19 05/28/19 05/28/19 07:00 07:30 08:00 Temp 97.5 97.5 Pulse 112 Resp 17 16 B/P (MAP) 159/81 (107) Pulse Ox 86 O2 Delivery Room Air Room Air Room Air Intake and Output 05/27/19 05/27/19 05/28/19 15:00 23:00 07:00 Intake Total 240 ml 240 ml Output Total 500 ml 50 ml Balance -260 ml 190 ml JOE GODINEZ MD May 28, 2019 10:18
[2019-05-28 19:00] VITALS: BP 136/66
[2019-05-28] MEDS: MORPHINE SULFATE 4 MG/ML VIAL. IV PRN (21:17)
[2019-05-29] MEDS: MORPHINE SULFATE 4 MG/ML VIAL. IV PRN ×4 (00:24→20:43)
[2019-05-29] MEDS: HALOPERIDOL 2 MG/ML ORAL.CONC. PO PRN ×3 (00:24→23:12)
[2019-05-29 07:00] VITALS: BP 118/58
--- NOTE | 2019-05-29 11:32 | PDOC ---
PROGRESS NOTES Chief Complaint Chief Complaint now on hospice Metabolic Encephalopathy Acute Kidney Injury - Vasomotor Nephropathy Alcohol use disorder Right femur Fracture - s/p ORIF left femur -intramedullary lindsay and proximal screws proximal femur on 05/17/2019 PVD - s/p left distal iliac, common femoral, and superficial femoral endartere ctomy with patch angioplasty performed at the [facility] by Dr. 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 Due to his severe deconditioning and overall poor prognosis was admitted to inpatient hospice on 05/25/2019. Patient complaining of pain, very confused. No new complaints Vitals Vitals Vital Signs Date Time Temp Pulse Resp B/P (MAP) Pulse Ox O2 Delivery O2 Flow Rate FiO2 05/29/19 08:00 Nasal Cannula 2.0 05/29/19 07:28 20 05/29/19 07:00 98.1 112 118/58 (78) 90 98.1 Physical Exam General: Alert, Cooperative, mild distress Heart: Regular rate, No murmurs Lungs: Wheezing, Crackles Abdomen: Normal bowel sounds, Soft Comment Review of Relevant I have reviewed the following items suzanne (where applicable) has been applied. Medications Current Medications Morphine Sulfate (Morphine Sulfate) 2 mg PRN Q1HR PRN IV SOA/PAIN Last adm inistered on 05/28/19at 19:25; Start 05/25/19 at 15:45 Bisacodyl (Dulcolax Supp) 10 mg PRN DAILY PRN [place] CONSTIPATION; Start 05/25/19 at 15:45 Acetaminophen (Tylenol Supp) 650 mg PRN Q4HRS PRN [place] MILD PAIN / TEMP; Start 05/25/19 at 15:45 Ondansetron HCl (Zofran Odt) 8 mg PRN Q6HRS PRN PO NAUSEA/VOMITING; Start 05/25/19 at 15:45 Scopolamine (Transderm-Scop) 1 patch Q3DAYS TD Last administered on 05/28/19at 09:12; Start 05/25/19 at 16:30 Haloperidol Lactate (HALDOL 2mg ORAL CONC) 2 mg PRN Q2HRS PRN PO AGITATION Last administered on 05/29/19at 07:28; Start 05/25/19 at 15:45 Morphine Sulfate (Morphine Sulfate) 4 mg PRN Q1HR PRN IV PAIN Last administered on 05/29/19at 07:28; Start 05/28/19 at 19:45 Active Scripts Active Tramadol Hcl 50 Mg Tablet 50 Mg PO PRN Q6HRS PRN Klonopin (Clonazepam) 0.5 Mg Tablet 1 Tab PO BID PRN Vitamin B-12 (Cyanocobalamin (Vitamin B-12)) 1,000 Mcg Tablet 1 Tab PO DAILY [Pantoprazole] 40 MG Tablet. 40 Mg PO BIDWMEALS 30 Days Reported Oxycodone Hcl 5 Mg Capsule 5 Mg PO BID Savella (Milnacipran Hcl) 50 Mg Tablet 1 Tab PO BID Aricept (Donepezil Hcl) 10 Mg Tablet 1 Tab PO DAILY 30 Days Protonix (Pantoprazole Sodium) 40 Mg Tablet. 40 Mg PO DAILYAC Namenda (Memantine Hcl) 10 Mg Tablet 10 Mg PO DAILY Latanoprost 2.5 Ml Drops 1 Drop EACHEYE QHS Combigan Eye Drops (Brimonidine Tartrate/Timolol) 5 Ml Drops 5 Ml OP DAILY Azopt (Brinzolamide) 10 Ml Drops.susp 1 Drop EACHEYE BID Magnesium (Magnesium Oxide) 400 Mg Capsule 250 Mg PO DAILY Preservision Areds Softgel (Vit A/Vit C/Vit E/Zinc/Copper) 1 Each Capsule 1 Each PO BID Tamsulosin Hcl 0.4 Mg Cap.er.24h 1 Cap PO DAILY Clopidogrel (Clopidogrel Bisulfate) 75 Mg Tablet 1 Tab PO DAILY Coreg (Carvedilol) 6.25 Mg Tablet 6.25 Mg PO BIDWMEALS Lipitor (Atorvastatin Calcium) 80 Mg Tablet 1 Tab PO DAILY Combigan Eye Drops (Brimonidine Tartrate/Timolol) 5 Ml Drops 1 Drop LEFTEYE BID Zyprexa (Olanzapine) 2.5 Mg Tablet 1 Tab PO QHS Seroquel (Quetiapine Fumarate) 25 Mg Tablet 1.5 Tab PO BID Cymbalta (Duloxetine Hcl) 30 Mg Capsule. 3 Cap PO DAILY Amitriptyline Hcl 10 Mg Tablet 2 Tab PO QHS Vitals/I & O Vital Sign - Last 24 Hours 05/28/19 05/28/19 05/28/19 05/28/19 15:45 16:15 19:00 19:25 Temp 98.3 98.3 Pulse 108 Resp 16 20 26 B/P (MAP) 136/66 (89) Pulse Ox 94 O2 Delivery Room Air Room Air Room Air Room Air 05/28/19 05/28/19 05/28/19 05/28/19 19:55 20:00 21:17 21:47 Resp 18 20 20 O2 Delivery Room Air Room Air Room Air Room Air 05/29/19 05/29/19 05/29/19 05/29/19 00:24 00:54 07:00 07:28 Temp 98.1 98.1 Pulse 112 Resp 20 22 18 20 B/P (MAP) 118/58 (78) Pulse Ox 90 O2 Delivery Room Air Room Air Nasal Cannula Room Air O2 Flow Rate 2.0 05/29/19 08:00 O2 Delivery Nasal Cannula O2 Flow Rate 2.0 Intake and Output 05/28/19 05/28/19 05/29/19 15:00 23:00 07:00 Intake Total 20 ml 240 ml 170 ml Output Total 200 ml 300 ml 425 ml Balance -180 ml -60 ml -255 ml NAHEED AMBROCIO MD May 29, 2019 11:32
[2019-05-29 19:00] VITALS: BP 163/73
[2019-05-30] MEDS: MORPHINE SULFATE 4 MG/ML VIAL. IV PRN ×3 (00:39→10:50)
[2019-05-30 07:00] VITALS: BP 125/66
--- NOTE | 2019-05-30 08:27 | PDOC ---
PROGRESS NOTES Chief Complaint Chief Complaint Metabolic Encephalopathy Acute Kidney Injury - Vasomotor Nephropathy Alcohol use disorder Right femur Fracture - s/p ORIF left femur -intramedullary lindsay and proximal screws proximal femur on 05/17/2019 PVD - s/p left distal iliac, common femoral, and superficial femoral endarterectomy with patch angioplasty performed at the [facility] by Dr. 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 Due to his severe deconditioning and overall poor prognosis was admitted to inpatient hospice on 05/25/2019. 05/28: Patient complaining of pain, very confused. No new complaints Today has no complaints. Pain well controlled. not anxious. Plan for hospice discharge to SNF today. Vitals Vitals Vital Signs Date Time Temp Pulse Resp B/P (MAP) Pulse Ox O2 Delivery O2 Flow Rate FiO2 05/30/19 05:19 Room Air 05/29/19 19:00 98.7 109 18 163/73 (103) 90 2.0 98.7 Physical Exam General: Alert, Cooperative, mild distress Heart: Regular rate, No murmurs Lungs: Wheezing, Crackles Abdomen: Normal bowel sounds, Soft Comment Review of Relevant I have reviewed the following items suzanne (where applicable) has been applied. Medications Current Medications Morphine Sulfate (Morphine Sulfate) 2 mg PRN Q1HR PRN IV SOA/PAIN Last administered on 05/28/19at 19:25; Start 05/25/19 at 15:45 Bisacodyl (Dulcolax Supp) 10 mg PRN DAILY PRN [place] CONSTIPATION; Start 05/25/19 at 15:45 Acetaminophen (Tylenol Supp) 650 mg PRN Q4HRS PRN [place] MILD PAIN / TEMP; Start 05/25/19 at 15:45 Ondansetron HCl (Zofran Odt) 8 mg PRN Q6HRS PRN PO NAUSEA/VOMITING; Start 05/25/19 at 15:45 Scopolamine (Transderm-Scop) 1 patch Q3DAYS TD Last administered on 05/28/19at 09:12; Start 05/25/19 at 16:30 Haloperidol Lactate (HALDOL 2mg ORAL CONC) 2 mg PRN Q2HRS PRN PO AGITATION Last administered on 05/29/19at 23:12; Start 05/25/19 at 15:45 Morphine Sulfate (Morphine Sulfate) 4 mg PRN Q1HR PRN IV PAIN Last administered on 05/30/19at 04:47; Start 05/28/19 at 19:45 Active Scripts Active Tramadol Hcl 50 Mg Tablet 50 Mg PO PRN Q6HRS PRN Klonopin (Clonazepam) 0.5 Mg Tablet 1 Tab PO BID PRN Vitamin B-12 (Cyanocobalamin (Vitamin B-12)) 1,000 Mcg Tablet 1 Tab PO DAILY [Pantoprazole] 40 MG Tablet.dr 40 Mg PO BIDWMEALS 30 Days Reported Oxycodone Hcl 5 Mg Capsule 5 Mg PO BID Savella (Milnacipran Hcl) 50 Mg Tablet 1 Tab PO BID Aricept (Donepezil Hcl) 10 Mg Tablet 1 Tab PO DAILY 30 Days Protonix (Pantoprazole Sodium) 40 Mg Tablet.dr 40 Mg PO DAILYAC Namenda (Memantine Hcl) 10 Mg Tablet 10 Mg PO DAILY Latanoprost 2.5 Ml Drops 1 Drop EACHEYE QHS Combigan Eye Drops (Brimonidine Tartrate/Timolol) 5 Ml Drops 5 Ml OP DAILY Azopt (Brinzolamide) 10 Ml Drops.susp 1 Drop EACHEYE BID Magnesium (Magnesium Oxide) 400 Mg Capsule 250 Mg PO DAILY Preservision Areds Softgel (Vit A/Vit C/Vit E/Zinc/Copper) 1 Each Capsule 1 Each PO BID Tamsulosin Hcl 0.4 Mg Cap.er.24h 1 Cap PO DAILY Clopidogrel (Clopidogrel Bisulfate) 75 Mg Tablet 1 Tab PO DAILY Coreg (Carvedilol) 6.25 Mg Tablet 6.25 Mg PO BIDWMEALS Lipitor (Atorvastatin Calcium) 80 Mg Tablet 1 Tab PO DAILY Combigan Eye Drops (Brimonidine Tartrate/Timolol) 5 Ml Drops 1 Drop LEFTEYE BID Zyprexa (Olanzapine) 2.5 Mg Tablet 1 Tab PO QHS Seroquel (Quetiapine Fumarate) 25 Mg Tablet 1.5 Tab PO BID Cymbalta (Duloxetine Hcl) 30 Mg Capsule.dr 3 Cap PO DAILY Amitriptyline Hcl 10 Mg Tablet 2 Tab PO QHS Vitals/I & O Vital Sign - Last 24 Hours 05/29/19 05/29/19 05/29/19 05/29/19 19:00 20:00 20:43 21:13 Temp 98.7 98.7 Pulse 109 Resp 18 B/P (MAP) 163/73 (103) Pulse Ox 90 O2 Delivery Nasal Cannula Room Air Room Air Room Air O2 Flow Rate 2.0 05/30/19 05/30/19 05/30/19 05/30/19 00:39 01:09 04:47 05:19 O2 Delivery Room Air Room Air Room Air Room Air Intake and Output 05/29/19 05/29/19 05/30/19 15:00 23:00 07:00 Intake Total 50 ml 0 ml 500 ml Output Total 300 ml Balance 50 ml -300 ml 500 ml NAHEED AMBROCIO MD May 30, 2019 08:27
[2019-05-30] MEDS ORDERED: LORA2ORA7 PO/SL (12:59)
[2019-05-30] MEDS ORDERED: MORP10SO PO (12:59)
--- NOTE | 2019-05-30 13:02 | SNU/HH DC ---
DISCHARGE ORDERS DISCHARGE INFORMATION: DISCHARGE DATE: May 30, 2019 FINAL DIAGNOSIS Dementia CONDITION ON DISCHARGE: Stable CODE STATUS: Code Status: DNR/DNI HOSPICE: HOSPICE: Yes HOSPICE EVAL & TREAT: Yes POST DISCHARGE ORDERS: ACTIVITY ORDERS: Activity as tolerated WEIGHT BEARING STATUS: No restrictions DIET AFTER DISCHARGE: Regular (Honey thick liquids) CHECKS AFTER DISCHARGE: CHECKS AFTER DISCHARGE: Check blood press - daily TREATMENT/EQUIPMENT ORDERS: RESPIRATORY EQUIPMENT NEEDED: Oxygen DISCHARGE MEDICATIONS: Home Meds Active Scripts Lorazepam (LORAZEPAM INTENSOL) 2 Mg/1 Ml Oral.conc, 2 MG PO/SL PRN Q2HRS PRN for ANXIETY for 30 Days, #30 MISC Prov:NAHEED AMBROCIO MD 05/30/19 Morphine Sulfate (MORPHINE SULFATE) 10 Mg/5 Ml Solution, 10 MG PO PRN Q4HRS PRN for pain/SOB for 30 Days, #30 MISC Prov:NAHEED AMBROCIO MD 05/30/19 Discontinued Reported Medications Amitriptyline Hcl (AMITRIPTYLINE HCL) 10 Mg Tablet, 2 TAB PO QHS for fibromyalgia, #30 TAB 3 Refills 05/17/19 Oxycodone Hcl (OXYCODONE HCL) 5 Mg Capsule, 5 MG PO BID for pain, TAB 0 Refills 05/17/19 Milnacipran Hcl (SAVELLA) 50 Mg Tablet, 1 TAB PO BID for antidepressant, #60 TAB 2 Refills 20 Donepezil Hcl (ARICEPT) 10 Mg Tablet, 1 TAB PO DAILY for medical management for 30 Days, #30 TAB 0 Refills 02/06/19 Pantoprazole Sodium (PROTONIX ) 40 Mg Tablet.dr, 40 MG PO DAILYAC for GERD, TAB 02/06/19 Memantine Hcl (NAMENDA) 10 Mg Tablet, 10 MG PO DAILY for memory, TAB 02/06/19 Latanoprost (LATANOPROST) 2.5 Ml Drops, 1 DROP EACHEYE QHS for glaucoma, #7.5 ML 3 Refills 07/26/18 Brimonidine Tartrate/Timolol (COMBIGAN EYE DROPS) 5 Ml Drops, 5 ML OP DAILY for glaucoma, DROP 07/26/18 Brinzolamide (AZOPT) 10 Ml Drops.susp, 1 DROP EACHEYE BID for glaucoma, #15 ML 3 Refills 07/26/18 Magnesium Oxide (MAGNESIUM) 400 Mg Capsule, 250 MG PO DAILY for supplement, CAP 07/26/18 Vit A/Vit C/Vit E/Zinc/Copper (PRESERVISION AREDS SOFTGEL) 1 Each Capsule, 1 EACH PO BID for glaucoma, CAP 04/26/18 Tamsulosin Hcl (TAMSULOSIN HCL) 0.4 Mg Cap.er.24h, 1 CAP PO DAILY for incontinr nce, #30 CAP 5 Refills 04/26/18 Clopidogrel Bisulfate (CLOPIDOGREL) 75 Mg Tablet, 1 TAB PO DAILY for platlets, #90 TAB 1 Refill 04/26/18 Carvedilol (COREG ) 6.25 Mg Tablet, 6.25 MG PO BIDWMEALS for CARDIAC, TAB 04/26/18 Atorvastatin Calcium (LIPITOR) 80 Mg Tablet, 1 TAB PO DAILY for cholestrrol, #30 TAB 5 Refills 04/26/18 Brimonidine Tartrate/Timolol (COMBIGAN EYE DROPS) 5 Ml Drops, 1 DROP LEFTEYE BID, DROP 10/18/17 Olanzapine (ZYPREXA) 2.5 Mg Tablet, 1 TAB PO QHS, #30 TAB 2 Refills 10/18/17 Quetiapine Fumarate (SEROQUEL) 25 Mg Tablet, 1.5 TAB PO BID, #30 TAB 2 Refills 10/18/17 Duloxetine Hcl (CYMBALTA) 30 Mg Capsule.dr, 3 CAP PO DAILY, #30 CAP 5 Refills 10/18/17 Discontinued Scripts Tramadol Hcl (TRAMADOL HCL) 50 Mg Tablet, 50 MG PO PRN Q6HRS PRN for MILD TO MODERATE PAIN, #20 TAB Prov:CARROLL MCMANUS MD 02/13/19 Clonazepam (KLONOPIN) 0.5 Mg Tablet, 1 TAB PO BID PRN for AGITATION, #30 TAB Prov:CARROLL MCMANUS MD 02/13/19 Cyanocobalamin (Vitamin B-12) (VITAMIN B-12) 1,000 Mcg Tablet, 1 TAB PO DAILY for supplement, #30 TAB 11 Refills Prov:JOE GODINEZ MD 07/28/18 [Pantoprazole] 40 MG TABLET. No Conflict Check, 40 MG PO BIDWMEALS for 30 Days, #60 3 Refills Prov:JESSE AVALOS MD 10/19/17 NAHEED AMBROCIO MD May 30, 2019 13:02
--- NOTE | 2019-05-30 13:08 | PDOC3 ---
Discharge Summary Visit Information Date of Admission: May 25, 2019 Date of Discharge: May 30, 2019 Admitting Diagnosis: Acute on chronic wernickes encephalopathy Final Diagnosis Acute on chronic wernickes encephalopathy Brief Hospital Course Allergies Allergies Coded Allergies Type Severity Reaction Last Updated Verified Sulfa (Sulfonamide Antibiotics) Allergy Intermediate 09/14/18 Yes lorazepam Allergy Intermediate Unknown 05/25/19 Yes prednisone Allergy Intermediate 04/26/18 Yes Vital Signs Vital Signs Date Time Temp Pulse Resp B/P (MAP) Pulse Ox O2 Delivery O2 Flow Rate FiO2 05/30/19 08:00 Room Air 05/30/19 07:00 97.8 103 16 125/66 (85) 89 97.8 05/29/19 19:00 2.0 Brief Hospital Course Mr Holly is a 78 year old male with peripheral vascular disease s/p left iliac and femoral endarterectomy 04/28/2019 admitted for fall and left femur fracture. Was noted in AFIB wtih RVR as well. Due to his severe deconditioning and overall poor prognosis with CAD, progressive wernickes encephalopathy was admitted to inpatient hospice on 05/25/2019. Afebrile since 05/20/2019 likely related to blood transfusion. . 05/28: Patient complaining of pain, very confused. No new complaints Today has no complaints. Pain well controlled. not anxious. Plan for hospice discharge to SNF today. Metabolic Encephalopathy Acute Kidney Injury - Vasomotor Nephropathy Alcohol use disorder Right femur Fracture - s/p ORIF left femur -intramedullary lindsay and proximal screws proximal femur on 05/17/2019 PVD - s/p left distal iliac, common femoral, and superficial femoral endarterectomy with patch angioplasty performed at the [facility] by Dr. 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 Greater than 30 minutes spent on d/c Discharge Information Condition at Discharge: Stable Follow Up: Weeks (1) Disposition/Orders: D/C to Another Facility Scheduled PRN Lorazepam (Lorazepam Intensol) 2 Mg/1 Ml Oral.conc, 2 MG PO/SL PRN Q2HRS PRN for ANXIETY for 30 Days, #30 Prescribed by: NAHEED AMBROCIO MD on 05/30/19 1259 Morphine Sulfate (Morphine Sulfate) 10 Mg/5 Ml Solution, 10 MG PO PRN Q4HRS PRN for pain/SOB for 30 Days, #30 Prescribed by: NAHEED AMBROCIO MD on 05/30/19 1259 Discontinued Medications Amitriptyline Hcl (Amitriptyline Hcl) 10 Mg Tablet, 2 TAB PO QHS for fibromyalgia, #30 Ref 3 (Reported) Entered as Reported by: Christy Roldan on 05/17/19 0156 Atorvastatin Calcium (Lipitor) 80 Mg Tablet, 1 TAB PO DAILY for cholestrrol, #30 Ref 5 (Reported) Entered as Reported by: NOEL BAIN on 04/26/18 1048 Brimonidine Tartrate/Timolol (Combigan Eye Drops) 5 Ml Drops, 1 DROP LEFTEYE BID, (Reported) Entered as Reported by: Antonette Barahona RN on 10/18/17 0018 Brimonidine Tartrate/Timolol (Combigan Eye Drops) 5 Ml Drops, 5 ML OP DAILY for glaucoma, (Reported) Entered as Reported by: Christy Roldan on 07/26/18 0023 Brinzolamide (Azopt) 10 Ml Drops.susp, 1 DROP EACHEYE BID for glaucoma, #15 Ref 3 (Reported) Entered as Reported by: Christy Roldan on 07/26/18 0023 Carvedilol (Coreg ) 6.25 Mg Tablet, 6.25 MG PO BIDWMEALS for CARDIAC, (Reported) Entered as Reported by: NOEL BAIN on 04/26/18 1048 Clonazepam (Klonopin) 0.5 Mg Tablet, 1 TAB PO BID PRN for AGITATION, #30 Prescribed by: CARROLL MCMANUS on 02/13/19 1344 Clopidogrel Bisulfate (Clopidogrel) 75 Mg Tablet, 1 TAB PO DAILY for platlets, #90 Ref 1 (Reported) Entered as Reported by: NOEL BAIN on 04/26/18 1048 Cyanocobalamin (Vitamin B-12) (Vitamin B-12) 1,000 Mcg Tablet, 1 TAB PO DAILY for supplement, #30 Ref 11 Prescribed by: JOE GODINEZ MD on 07/28/18 1413 Donepezil Hcl (Aricept) 10 Mg Tablet, 1 TAB PO DAILY for medical management for 30 Days, #30 Ref 0 (Reported) Entered as Reported by: GERALD ROBERTS on 02/06/191825 Duloxetine Hcl (Cymbalta) 30 Mg Capsule.dr, 3 CAP PO DAILY, #30 Ref 5 (Reported) Entered as Reported by: Antonette Barahona RN on 10/18/1713 Latanoprost (Latanoprost) 2.5 Ml Drops, 1 DROP EACHEYE QHS for glaucoma, #7.5 Ref 3 (Reported) Entered as Reported by: Christy Roldan on 07/26/1822 Magnesium Oxide (Magnesium) 400 Mg Capsule, 250 MG PO DAILY for supplement, (Reported) Entered as Reported by: Christy Roldan on 07/26/1822 Memantine Hcl (Namenda) 10 Mg Tablet, 10 MG PO DAILY for memory, (Reported) Entered as Reported by: GERALD ROBERTS on 02/06/191825 Milnacipran Hcl (Savella) 50 Mg Tablet, 1 TAB PO BID for antidepressant, #60 Ref 2 (Reported) Entered as Reported by: Christy Roldan on 05/17/19155 Olanzapine (Zyprexa) 2.5 Mg Tablet, 1 TAB PO QHS, #30 Ref 2 (Reported) Entered as Reported by: Antonette Barahona RN on 10/18/1713 Oxycodone Hcl (Oxycodone Hcl) 5 Mg Capsule, 5 MG PO BID for pain, Ref 0 (Reported) Entered as Reported by: Christy Roldan on 05/17/19155 Pantoprazole Sodium (Protonix ) 40 Mg Tablet., 40 MG PO DAILYAC for GERD, (Reported) Entered as Reported by: GERALD ROBERTS on 02/06/191825 Quetiapine Fumarate (Seroquel) 25 Mg Tablet, 1.5 TAB PO BID, #30 Ref 2 (Reported) Entered as Reported by: Antonette Barahona RN on 10/18/1713 Tamsulosin Hcl (Tamsulosin Hcl) 0.4 Mg Cap.er.24h, 1 CAP PO DAILY for incontinrnce, #30 Ref 5 (Reported) Entered as Reported by: NOEL BAIN on 04/26/18 1048 Tramadol Hcl (Tramadol Hcl) 50 Mg Tablet, 50 MG PO PRN Q6HRS PRN for MILD TO MODERATE PAIN, #20 Prescribed by: CARROLL MCMANUS on 02/13/19 1344 Vit A/Vit C/Vit E/Zinc/Copper (Preservision Areds Softgel) 1 Each Capsule, 1 EACH PO BID for glaucoma, (Reported) Entered as Reported by: NOEL BAIN on 04/26/18 1048 [Pantoprazole] 40 MG TABLET.DR, 40 MG PO BIDWMEALS for 30 Days, #60 Ref 3 Prescribed by: JESSE AVALOS MD on 10/19/17 1325 NAHEED AMBROCIO MD May 30, 2019 13:08
--- NOTE | 2019-05-30 15:21 | NUR ---
PICC removed from CHANEL, tip intact. 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 Dr. Gupta stated no f/u needed. pt stable upon dc. Report given to JASON Steinberg at [facility]
== END 2019-05-30 15:00 | disposition hospice, inpatient (51) | DRG 682 ==
LOC: 2 SOUTH 15:40 → 5 SOUTH 17:47
PROVIDERS: ADMIT Family Medicine; ATTEND Family Medicine
DX: N17.0 Acute kidney failure with tubular necrosis (principal); G93.41 Metabolic encephalopathy; E51.2 Wernicke's encephalopathy; D62 Acute posthemorrhagic anemia; E87.1 Hypo-osmolality and hyponatremia; E11.51 Type 2 diabetes mellitus with diabetic peripheral angiopathy without gangrene; E78.5 Hyperlipidemia, unspecified; E86.1 Hypovolemia; F03.90 Unspecified dementia, unspecified severity, without behavioral disturbance, psychotic disturbance, mood disturbance, and anxiety; F10.10 Alcohol abuse, uncomplicated; I10 Essential (primary) hypertension; I25.10 Atherosclerotic heart disease of native coronary artery without angina pectoris; I48.91 Unspecified atrial fibrillation; J44.9 Chronic obstructive pulmonary disease, unspecified; K21.9 Gastro-esophageal reflux disease without esophagitis; K27.9 Peptic ulcer, site unspecified, unspecified as acute or chronic, without hemorrhage or perforation; R56.9 Unspecified convulsions; Z88.2 Allergy status to sulfonamides; Z88.8 Allergy status to other drugs, medicaments and biological substances
CPT/HCPCS: J2270; G0378

== ENCOUNTER 2019-09-12 16:18 | Emergency (ER) | payer MEDICARE, OTHER ==
[~2019-09-12] VITALS: Ht 167.6 cm; Wt 53.0 kg
[~2019-09-12 16:18] MED LIST changes: +LORA2ORA7 PO/SL; +MORP10SO PO
[2019-09-12 16:49] LABS: BASO % 1 % (0-3); EOS # 0.1 x10^3/uL (0.0-0.7); EOS % 1 % (0-3); HEMATOCRIT 36.3 % (39.0-53.0); HEMOGLOBIN 12.4 g/dL (13.0-17.5); LYMPH # 2.2 x10^3/uL (1.0-4.8); LYMPH % 25 % (24-48); MEAN CORPUSCULAR HEMOGLOBIN 31 pg (25-35); MEAN CORPUSCULAR HGB CONC 34 g/dL (31-37); MEAN CORPUSCULAR VOLUME 91 fL (79-100); MONO # 0.6 x10^3/uL (0.0-1.1); MONO % 7 % (0-9); NEUT # 5.9 x10^3/uL (1.8-7.7); NEUT % 67 % (31-73); PLATELET COUNT 262 x10^3/uL (140-400); RED BLOOD COUNT 4.01 x10^6/uL (4.30-5.70); RED CELL DISTRIBUTION WIDTH 13.8 % (11.5-14.5); WHITE BLOOD COUNT 8.8 x10^3/uL (4.0-11.0)
[2019-09-12 16:51] LABS: BILIRUBIN,URINE NEGATIVE (NEG); CLARITY,URINE CLEAR; COLOR,URINE YELLOW; NITRITE,URINE NEGATIVE (NEG); PROTEIN,URINE NEGATIVE (NEG-TRACE); UROBILINOGEN,URINE 0.2 mg/dL (0.2 mg/dL)
[2019-09-12 17:00] LABS: PROTHROMBIN TIME PATIENT 12.9 SEC (11.7-14.0)
[2019-09-12 17:07] LABS: BACTERIA,URINE FEW /HPF (0-FEW); SQUAMOUS EPITHELIAL CELL,UR FEW /LPF
[2019-09-12 17:11] LABS: CALCIUM 8.5 mg/dL (8.5-10.1); CREATININE 1.1 mg/dL (0.7-1.3); GFR 64.7; POTASSIUM 3.7 mmol/L (3.5-5.1)
--- NOTE | 2019-09-12 17:13 | PHYS DOC ---
Past Medical History Past Medical History: Alcoholism, Anxiety, Glaucoma, High Cholesterol, Hypertension, SC, TIA, Other Additional Past Medical Histor: stents in heart, sepsis, pneumonia, ex alcoholic, alcohol related seizure Past Surgical History: Other Additional Past Surgical Histo: HERNIA, l eye, Smoking Status: Heavy Tobacco Smoker Additional Information: QUIT SMOKING THREE WEEKS AGO. Alcohol Use: Heavy Additional Information: SOBER FOR 30 YEARS. Drug Use: None General Adult EDM: Chief Complaint: HYPERTENSION HPI: HPI: Patient is a 78 year old male from [facility] who presents with multiple complaints. Patient reports that for the last 2 months he has had generalized lower chest and upper abdominal pain, dizziness. Patient was evaluated in this ER 2 weeks ago for the same symptoms. Patient reports that when this pain occurs it feels like pleurisy and a burning pain. The chest pain does not radiate, and when he experiences the chest pain he rates it 6 out of 10. Patient reports that when he gets morphine at the [facility] that improves his chest pain. Patient reports that his chest pain is worse when he is in air conditioning, cold, and when it is raining. Patient reports that he has chronic shortness of breath that is worse when laying flat. Patient is currently den chichi any symptoms of chest pain, dizziness, or shortness of breath. The only pain patient is complaining about is his chronic lower back pain that he rates 7 out of 10. Patient is currently wearing a fentanyl patch to his back for his chronic back pain. Pt was evaluated by a new physician for his fibromyalgia today, that physician suggested that patient come to the emergency department for evaluation of his hypertension. Patient reports that his primary care provider has been changing his dosages of his blood pressure medication and for the last couple weeks it has been high. Patient has a history of a TIA, hypertension, high cholesterol, alcoholism, former smoker, SC with stent placem ent. He currently denies any complaints at this time. Review of Systems: Review of Systems: Constitutional: Denies fever or chills. [] Eyes: Denies change in visual acuity. [] HENT: Denies nasal congestion or sore throat. [] Respiratory: Denies cough; reports chronic shortness of breath. [] Cardiovascular: See HPI [] GI: Denies nausea, vomiting, or diarrhea, see HPI [] : Denies dysuria. [] Musculoskeletal: See HPI [] Integument: Denies rash. [] Neurologic: Denies headache, focal weakness or sensory changes, see HPI. [] Lymphatic: Denies swollen glands. [] Psychiatric: Denies depression or anxiety. [] Heart Score: Risk Factors: Risk Factors: DM, Current or recent (<one month) smoker, HTN, HLP, family history of CAD, obesity. Risk Scores: Score 0 - 3: 2.5% MACE over next 6 weeks - Discharge Home Score 4 - 6: 20.3% MACE over next 6 weeks - Admit for Clinical Observation Score 7 - 10: 72.7% MACE over next 6 weeks - Early Invasive Strategies Allergies: Allergies: Allergies Coded Allergies Type Severity Reaction Last Updated Verified Sulfa (Sulfonamide Antibiotics) Allergy Intermediate 09/14/18 Yes lorazepam Allergy Intermediate Unknown 05/25/19 Yes prednisone Allergy Intermediate 04/26/18 Yes Physical Exam: PE: Constitutional: Well developed, well nourished, no acute distress, non-toxic ap pearance. [] HENT: Normocephalic, atraumatic, bilateral external ears normal, nose normal. [] Eyes: PERRLA, EOMI, conjunctiva normal, no discharge. [] Neck: Normal range of motion, no tenderness, no stridor. [] Cardiovascular:Heart rate regular rhythm, no murmur [] Lungs & Thorax: Bilateral breath sounds clear to auscultation, Respirations even and unlabored, no retractions, no respiratory distress [] Abdomen: Bowel sounds normal, soft, no tenderness, no masses, no pulsatile masses. [] Skin: Warm, dry, no erythema, no rash. [] Back: bilateral low back pain with palpation, pt reports no new injury, chronic pain Extremities: No tenderness, no cyanosis, no clubbing, ROM intact, no edema. [] Neurologic: Alert and oriented X 3, normal motor function, normal sensory function, no focal deficits noted. [] Psychologic: Affect normal, judgement normal, mood normal. [] Current Patient Data: Labs: Laboratory Tests Test 09/12/19 16:35 White Blood Count 8.8 x10^3/uL (4.0-11.0) Red Blood Count 4.01 x10^6/uL (4.30-5.70) L Hemoglobin 12.4 g/dL (13.0-17.5) L Hematocrit 36.3 % (39.0-53.0) L Mean Corpuscular Volume 91 fL (79-100) Mean Corpuscular Hemoglobin 31 pg (25-35) Mean Corpuscular Hemoglobin Concent 34 g/dL (31-37) Red Cell Distribution Width 13.8 % (11.5-14.5) Platelet Count 262 x10^3/uL (140-400) Neutrophils (%) (Auto) 67 % (31-73) Lymphocytes (%) (Auto) 25 % (24-48) Monocytes (%) (Auto) 7 % (0-9) Eosinophils (%) (Auto) 1 % (0-3) Basophils (%) (Auto) 1 % (0-3) Neutrophils # (Auto) 5.9 x10^3/uL (1.8-7.7) Lymphocytes # (Auto) 2.2 x10^3/uL (1.0-4.8) Monocytes # (Auto) 0.6 x10^3/uL (0.0-1.1) Eosinophils # (Auto) 0.1 x10^3/uL (0.0-0.7) Basophils # (Auto) 0.0 x10^3/uL (0.0-0.2) Laboratory Tests 09/12/19 16:35 Vital Signs: Vital Signs Date Time Temp Pulse Resp B/P (MAP) Pulse Ox O2 Delivery O2 Flow Rate FiO2 09/12/19 16:28 98.0 72 16 176/82 (113) 100 Room Air 98.0 EKG: EK-sinus rhythm rate of 73 no STEMI read by Dr. Nelson [] Radiology/Procedures: Radiology/Procedures: PROCEDURE: CHEST AP ONLY EXAM: CHEST ONE VIEW. HISTORY: Chest pain. COMPARISON: 05/22/2019. FINDINGS: A frontal view of the chest is obtained. An electronic device projects over the left chest. A left perihilar opacity may represent calcified pleural plaquing and appears stable. There are mild interstitial opacities in the bases. There is no pneumothorax or pleural effusion. The heart is not enlarged. There are atherosclerotic calcifications of the aorta. IMPRESSION: 1. Mild basilar interstitial opacities. Correlate for interstitial lung disease if chronic or mild pulmonary edema if acute.[] Course & Med Decision Making: Course & Med Decision Making Pertinent Labs and Imaging studies reviewed. (See chart for details) Patient is a 78-year-old male who presents to the emergency department with reports of needing to be evaluated for his high blood pressure. He also complains of diarrhea exacerbation of his chronic back pain. Patient is currently wearing a heart monitor as he has had intermittent chest pain for several weeks. Work-up includes CBC, CMP, lipase, magnesium, BNP, PT/INRs, troponin, CK enzymes, UA, chest x-ray and twelve-lead EKG. CBC is unremarkable; PT/INR within normal limits; CMP reveals a glucose of 114, and albumin of 3.2 otherwise unremarkable, patient's BNP is 305 and CK index and troponin were negative. Chest x-ray revealed mild basilar interstitial opacities, these appear improved from previous chest x-ray on file. Patient is not complaining of increased shortness of breath. EKG revealed no acute findings. The patient was given 10 mg of IV hydralazine for his blood pressure and 4 mg of IV morphine. His blood pressure improved to 172/80, he reported reduced pain after the morphine. [facility] with follow-up with his primary care doctor for further management of his hypertension. [] Dragon Disclaimer: Dragon Disclaimer: This electronic medical record was generated, in whole or in part, using a voice recognition dictation system. Departure Departure Impression: Primary Impression: Hypertension Qualified Codes: I10 - Essential (primary) hypertension Additional Impression: Chronic back pain Qualified Codes: M54.5 - Low back pain; G89.29 - Other chronic pain Disposition: 01 HOME, SELF-CARE Condition: STABLE Referrals: MAURY RIDDLE DO (PCP) Patient Instructions: Chronic Back Pain, Hypertension, [id number] Additional Instructions: In the emergency department you were given 10 mg of hydralazine IV for your bl ood pressure and 4 mg of morphine IV for your chronic pain. Your chest x-ray appears improved since your previous chest x-ray on file. Follow-up with your primary care doctor for further evaluation of your high blood pressure. Return to the ER if your symptoms worsen Justicifation of Admission Dx: Justifications for Admission: Justification of Admission Dx: N/A GERALD FAYE PADDED BOX SEWER Sep 12, 2019 17:12
[2019-09-12 17:16] LABS: ALBUMIN 3.2 g/dL (3.4-5.0); ALBUMIN/GLOBULIN RATIO 0.9 (1.0-1.7); MAGNESIUM 1.9 mg/dL (1.8-2.4); TOTAL BILIRUBIN 0.3 mg/dL (0.2-1.0); TOTAL PROTEIN 6.9 g/dL (6.4-8.2)
[2019-09-12 17:26] LABS: CREATINE KINASE 57 U/L (39-308)
--- NOTE | 2019-09-12 17:57 | RAD ---
EXAM: CHEST ONE VIEW. HISTORY: Chest pain. COMPARISON: 05/22/2019. FINDINGS: A frontal view of the chest is obtained. An electronic device projects over the left chest. A left perihilar opacity may represent calcified pleural plaquing and appears stable. There are mild interstitial opacities in the bases. There is no pneumothorax or pleural effusion. The heart is not enlarged. There are atherosclerotic calcifications of the aorta. IMPRESSION: 1. Mild basilar interstitial opacities. Correlate for interstitial lung disease if chronic or mild pulmonary edema if acute. Electronically signed by: Marcel Stevenson MD (09/12/2019 5:55 PM) [facility]
[2019-09-12] MEDS ORDERED: hydrALAZINE 20 MG/ML VIAL. IVP ONE (19:00)
[2019-09-12] MEDS ORDERED: MORPHINE SULFATE 4 MG/ML VIAL. IV ONE (19:00)
[2019-09-12 20:00] VITALS: BP 185/88
--- NOTE | 2019-09-12 22:35 | EKG ---
[facility] [address] [place] [id number] Test Date: 2019-09-12 Test Time: 16:26:46 Pat Name: HAYES ESCALANTE Department: Room: Gender: M [employer]: : 1940 Requested By: GERALD FAYE Order Number: [id number] Reading MD: Measurements Intervals [place] Rate: 73 P: 66 TX: 134 QRS: 9 QRSD: 86 T: 55 QT: 370 QTc: 411 Interpretive Statements SINUS RHYTHM NORMAL ECG RI6.02 No previous ECG available for comparison
== END 2019-09-12 20:40 | disposition home or self-care (01) ==
LOC: ER 16:18
DX: I10 Essential (primary) hypertension (principal); M54.5 Low back pain; G89.29 Other chronic pain; R10.10 Upper abdominal pain, unspecified; R10.30 Lower abdominal pain, unspecified; R42 Dizziness and giddiness; R07.89 Other chest pain; F41.9 Anxiety disorder, unspecified; E78.00 Pure hypercholesterolemia, unspecified; I25.2 Old myocardial infarction; F10.10 Alcohol abuse, uncomplicated; Z86.73 Personal history of transient ischemic attack (TIA), and cerebral infarction without residual deficits; Z98.890 Other specified postprocedural states; Z88.2 Allergy status to sulfonamides; Z88.8 Allergy status to other drugs, medicaments and biological substances
CPT/HCPCS: 36415; 71045; 80053; 81001; 82553; 83690; 83735; 83880; 84484; 85025; 85610; 85730; 93005; 96374; 96375; 99285; J0360; J2270